=== PATIENT | male | born 1950 | race Caucasian/White ===

== ENCOUNTER 2022-07-09 11:07 | Inpatient (IN) | payer BC, MEDICARE ==
[2022-07-09 11:33] LABS: Basophils % (A) 0 %; Eosinophils # (A) 0.1 k/uL (0-0.7); Eosinophils % (A) 1 %; HCT 39.6 % (39.0-53.0); HGB 12.6 gm/dL (13.0-17.5); Hypochromasia Moderate; Lymphocytes # (A) 1.4 k/uL (1.0-4.8); Lymphocytes % (A) 9 %; MCH 30.1 pg (25.0-35.0); MCHC 31.8 g/dL (31.0-37.0); MCV 94.7 fL (80.0-100.0); Mean Platelet Volume 7.9; Monocytes # (A) 0.6 k/uL (0-1.0); Monocytes % (A) 4 %; Neutrophils % (A) 86 %; Platelet Count 229 k/uL (150-450); RBC 4.18 m/uL (4.30-5.90); RDW 15.3 % (11.5-15.5); WBC 15.2 k/uL (3.8-10.6)
[2022-07-09 11:44] LABS: ALT 60 U/L (4-49); AST 34 U/L (17-59); African American GFR (CKD) >90 (>60 ml/min/1.73 sqM); Albumin 3.5 g/dL (3.5-5.0); Alkaline Phosphatase 149 U/L (38-126); Anion Gap 8 mmol/L; Blood Urea Nitrogen 15 mg/dL (9-20); Calcium 8.9 mg/dL (8.4-10.2); Carbon Dioxide 28 mmol/L (22-30); Chloride 108 mmol/L (98-107); Glucose 106 mg/dL (74-99); Magnesium 2.1 mg/dL (1.6-2.3); Non-African American GFR(CKD) >90 (>60 ml/min/1.73 sqM); Potassium 4.5 mmol/L (3.5-5.1); Sodium 144 mmol/L (137-145); Total Bilirubin 0.7 mg/dL (0.2-1.3); Total Protein 6.6 g/dL (6.3-8.2)
--- NOTE | 2022-07-09 11:46 | ED ---
General Adult HPI - General Chief complaint: Shortness of Breath Stated complaint: AMI Time Seen by Provider: 07/09/22 11:09 Source: patient, EMS, RN notes reviewed Mode of arrival: EMS Limitations: no limitations - History of Present Illness Initial comments: This a 71-year-old male presents emergency Department from [facility] via EMS chief complaint of shortness of breath. Patient is found to be hypoxic in the 80s on 2 L of oxygen. Patient is currently on [facility] after being discharged from [facility] for pneumonia. Patient does have underlying metastatic pancreatic cancer and the question possible new metastasis to lung. Patient states that he is not having any increase in cough congestion from his recent baseline denies any nausea vomiting diarrhea constipation he has had prior chemotherapy. Patient was given 5 L O2 which improved his pulse ox to 100%. Patient states he still feels slightly short of breath denies any history of DVT or PE. - Related Data Allergies Allergy/AdvReac Type Severity Reaction Status Date / Time Penicillins Allergy Unknown Verified 07/09/22 11:19 Review of Systems ROS Statement: Those systems with pertinent positive or pertinent negative responses have been documented in the HPI. ROS Other: All systems not noted in ROS Statement are negative. 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, anemia History of Any Multi-Drug Resistant Organisms: None Reported Additional Past Surgical History / Comment(s): brain surgery Past Psychological History: Depression Smoking Status: Former smoker Past Alcohol Use History: None Reported Past Drug Use History: None Reported General Exam Limitations: no limitations General appearance: alert, in no apparent distress Head exam: Present: atraumatic, normocephalic, normal inspection Eye exam: Present: normal appearance, PERRL, EOMI. Absent: scleral icterus, conjunctival injection, periorbital swelling ENT exam: Present: normal exam, normal oropharynx, mucous membranes moist Neck exam: Present: normal inspection, full ROM. Absent: tenderness, meningismus, lymphadenopathy Respiratory exam: Present: respiratory distress (Mild), decreased breath sounds. Absent: normal lung sounds bilaterally, wheezes, rales, rhonchi, stridor Cardiovascular Exam: Present: normal rhythm, tachycardia, normal heart sounds. Absent: systolic murmur, diastolic murmur, rubs, gallop, clicks GI/Abdominal exam: Present: soft, normal bowel sounds. Absent: distended, tend erness, guarding, rebound, rigid Course Vital Signs 07/09/22 11:08 Temperature 97 F L Pulse Rate 105 H Respiratory 28 H Rate Blood Pressure 140/71 O2 Sat by Pulse 100 Oximetry EKG Findings - EKG Comments: EKG Findings:: EKG interpreted by me sinus tachycardia rate of 101 SD 142 QRS 85 QT/QTC 326/384 to prior EKG to compare to - EKG Results: EKG: interpreted by ANTOINETTE Medical Decision Making - Medical Decision Making 71-year-old presented for hypoxia. Patient does have pneumonitis, pneumonia on x-ray. Patient will be admitted for hypoxia, failure of outpatient treatment, pneumonia patient will have additional d-dimer study added pending CT if positive. - Lab Data Result diagrams: 07/09/22 11:24 07/09/22 11:24 Lab Results 07/09/22 07/09/22 07/09/22 Range/Units 11:24 11:24 11:24 WBC 15.2 H (3.8-10.6) k/uL RBC 4.18 L (4.30-5.90) m/uL Hgb 12.6 L (13.0-17.5) gm/dL Hct 39.6 (39.0-53.0) % MCV 94.7 (80.0-100.0) fL MCH 30.1 (25.0-35.0) pg MCHC 31.8 (31.0-37.0) g/dL RDW 15.3 (11.5-15.5) % Plt Count 229 (150-450) k/uL MPV 7.9 Neutrophils % 86 % Lymphocytes % 9 % Monocytes % 4 % Eosinophils % 1 % Basophils % 0 % Neutrophils # 13.0 H (1.3-7.7) k/uL Lymphocytes # 1.4 (1.0-4.8) k/uL Monocytes # 0.6 (0-1.0) k/uL Eosinophils # 0.1 (0-0.7) k/uL Basophils # 0.0 (0-0.2) k/uL Hypochromasia Moderate PT 10.1 (9.0-12.0) sec INR 0.9 (<1.2) APTT 23.0 (22.0-30.0) sec Sodium 144 (137-145) mmol/L Potassium 4.5 (3.5-5.1) mmol/L Chloride 108 H (98-107) mmol/L Carbon Dioxide 28 (22-30) mmol/L Anion Gap 8 mmol/L BUN 15 (9-20) mg/dL Creatinine 0.60 L (0.66-1.25) mg/dL Est GFR (CKD-EPI)AfAm >90 (>60 ml/min/1.73 sqM) Est GFR (CKD-EPI)NonAf >90 (>60 ml/min/1.73 sqM) Glucose 106 H (74-99) mg/dL Plasma Lactic Acid Carson (0.7-2.0) mmol/L Calcium 8.9 (8.4-10.2) mg/dL Magnesium 2.1 (1.6-2.3) mg/dL Total Bilirubin 0.7 (0.2-1.3) mg/dL AST 34 (17-59) U/L ALT 60 H (4-49) U/L Alkaline Phosphatase 149 H (38-126) U/L Troponin I (0.000-0.034) ng/mL NT-Pro-B Natriuret Pep pg/mL Total Protein 6.6 (6.3-8.2) g/dL Albumin 3.5 (3.5-5.0) g/dL 07/09/22 07/09/22 07/09/22 Range/Units 11:24 11:24 11:24 WBC (3.8-10.6) k/uL RBC (4.30-5.90) m/uL Hgb (13.0-17.5) gm/dL Hct (39.0-53.0) % MCV (80.0-100.0) fL MCH (25.0-35.0) pg MCHC (31.0-37.0) g/dL RDW (11.5-15.5) % Plt Count (150-450) k/uL MPV Neutrophils % % Lymphocytes % % Monocytes % % Eosinophils % % Basophils % % Neutrophils # (1.3-7.7) k/uL Lymphocytes # (1.0-4.8) k/uL Monocytes # (0-1.0) k/uL Eosinophils # (0-0.7) k/uL Basophils # (0-0.2) k/uL Hypochromasia PT (9.0-12.0) sec INR (<1.2) APTT (22.0-30.0) sec Sodium (137-145) mmol/L Potassium (3.5-5.1) mmol/L Chloride (98-107) mmol/L Carbon Dioxide (22-30) mmol/L Anion Gap mmol/L BUN (9-20) mg/dL Creatinine (0.66-1.25) mg/dL Est GFR (CKD-EPI)AfAm (>60 ml/min/1.73 sqM) Est GFR (CKD-EPI)NonAf (>60 ml/min/1.73 sqM) Glucose (74-99) mg/dL Plasma Lactic Acid Carson 2.2 H* (0.7-2.0) mmol/L Calcium (8.4-10.2) mg/dL Magnesium (1.6-2.3) mg/dL Total Bilirubin (0.2-1.3) mg/dL AST (17-59) U/L ALT (4-49) U/L Alkaline Phosphatase (38-126) U/L Troponin I <0.012 (0.000-0.034) ng/mL NT-Pro-B Natriuret Pep 1590 pg/mL Total Protein (6.3-8.2) g/dL Albumin (3.5-5.0) g/dL Disposition Clinical Impression: Hypoxia, Respiratory distress, Pneumonia, Failure of outpatient treatment Disposition: ADMITTED IP TO THIS HOSP Condition: Fair Referrals: None,Stated [REFERRING] - 1-2 days Time of Disposition: 12:50
[2022-07-09 11:48] LABS: INR 0.9 (<1.2); Prothrombin Time 10.1 sec (9.0-12.0)
--- NOTE | 2022-07-09 12:25 | XR ---
EXAMINATION TYPE: XR chest 2V DATE OF EXAM: 07/09/2022 COMPARISON: NONE TECHNIQUE: PA and lateral views submitted. HISTORY: Difficulty breathing FINDINGS: Uterus interstitial pattern with left lower lobe infiltrate. There is a Mediport catheter with tip ov erlying the SVC. There is no pneumothorax. Arthropathy of the shoulders. Size normal. Degenerative ch anges spine. Hyperinflation of the lungs. IMPRESSION: 1. COPD with diffuse interstitial pattern correlate for interstitial pneumonitis with superimposed le ft lower lobe infiltrate. CHF not excluded but felt less likely.
[2022-07-09] MEDS ORDERED: AZITHROMYCIN 500 MG in SODIUM CHLORIDE 0.9% 250 ML IVPB STA (13:12)
[2022-07-09] MEDS ORDERED: PNEUMONIA PROTOCOL UTILIZED 1 EACH MISC PO PRN (13:12)
[2022-07-09] MEDS ORDERED: CEFEPIME 2 GM in SODIUM CHLORIDE 0.9% 100 ML IVPB STA (13:12)
[2022-07-09] MEDS ORDERED: IPRATROPIUM-ALBUTEROL 3 ML NEB INHALATION PRN (13:12)
[2022-07-09] MEDS ORDERED: HYDROcodone/APAP 10-325MG 1 EACH TAB PO PRN (13:21)
[2022-07-09] MEDS ORDERED: SENNOSIDES-DOCUSATE SODIUM 1 EACH TAB PO PRN (13:21)
[2022-07-09] MEDS ORDERED: PROCHLORPERAZINE 10 MG TAB PO PRN (13:21)
[2022-07-09] MEDS ORDERED: DIPHENOX-ATROP 2.5-0.025 MG 1 EACH TAB PO PRN (13:21)
--- NOTE | 2022-07-09 14:29 | CT ---
EXAMINATION TYPE: CT chest angio for PE DATE OF EXAM: 07/09/2022 COMPARISON: Chest x-ray earlier today HISTORY: SOB, elevated d-dimer CT DLP: 264.1 mGycm. Automated Exposure Control for Dose Reduction was Utilized. CONTRAST: CTA scan of the thorax is performed with IV Contrast, patient injected with 63cc mL of Isovue 370, pu lmonary embolism protocol. MIP Images are created on CT scanner and reviewed. FINDINGS: LUNGS: Background mild to moderate underlying emphysematous change with peripheral bulla and bleb for mation. There is increased groundglass opacity and intralobular septal thickening in the bilateral joaquin ngs greatest in the periphery suggesting [id number] edema. Exam suboptimal as patient unable to hold breath. No pleural effusion or pneumothorax seen bilaterally. No suspicious pulmonary masses. E valuation for subcentimeter pulmonary nodules limited due to motion compromise. No suspicious focal c onsolidation. MEDIASTINUM: There is satisfactory enhancement of the pulmonary artery and its branches, there is no CT evidence for pulmonary embolism. There is left internal jugular Mediport catheter terminating in t he SVC. There are no greater than 1 cm hilar or mediastinal lymph nodes. No cardiomegaly or pericar dial effusion is seen. Coronary artery calcification is present. Hypoplastic or small sized thyroid. There appears to be a small caliber left common carotid artery which is completely occluded at its or igin. This is not well visualized in the lower neck. OTHER: Nonspecific 4.4 cm heterogeneous hypodense area worrisome for mass in the right hepatic lobe a xial image 123. Abnormal soft tissue encases the celiac artery extending from the distal pancreatic b alonso and tail, underlying4.2 cm mass suspected axial image 136. Small size hiatal hernia. IMPRESSION: 1. No CT evidence for acute pulmonary embolism. 2. Mild to moderate underlying emphysematous change with mild to moderate bilateral interstitial rhett a and/or atypical infiltrates. No focal consolidation. 3. Suspicious soft tissue suspected infiltrating mass in the distal pancreas worrisome for neoplasm. Probable solid lesion in the liver worrisome for metastatic disease. Further workup and follow-up adv ised. 4. Suspect small caliber occluded left common carotid artery. Correlate clinically. Consider imaging follow-up to confirm.
--- NOTE | 2022-07-09 16:45 | P.CNPUL ---
History of Present Illness Consult date: 07/09/22 Reason for consult: dyspnea, pneumonia History of present illness: 71-year-old male patient came into the ED because of worsening shortness of br eath. He was found to be hypoxic. There is currently at [facility] , and our understanding is that the patient was send her after he was hospitalized at [facility] in [place] and he was given systemic chemotherapy for metastatic pancreas cancer. During the same hospitalization, the patient underwent a bronchoscopy and bronchoalveolar lavage that was done was positive for pneumocystis Jev. . Diagnostic circumstances are not known. I believe this was a bronchoscopy and bronchial lavage and I'm not sure the patient was to Bactrim accordingly. assisted medication list, there is no antimicrobial treatment directed towards pneumocystis infection. The patient has no previous history of DVTs or pulmonary embolism. Nausea of any aspiration. No nausea or vomiting or abdomin al pain. CAT scan of the chest was done in the ED and it showed moderate degree of emphysematous changes bilaterally and peripheral bullae and bleb formation. There was increased ground glass opacity and interlobular septal thickening in the bilateral lungs reveal distant apparently suggesting of an underlying pneumonia/infection. No evidence of any pleural effusion. No mediastinal lymphadenopathy. There was a mass in the tail of the pancreas. This was quite worrisome for pancreatic cancer and the patient has also solid lesion in the liver suggestive of metastatic disease. For now, the patient is on 5 L O2 nasal cannula. The wound was closed of 15.2. Hemoglobin is 12.6. D-dimer is at 1.9 with a normal cognition profile. Electrolytes are normal. Influenza a and B were negative. Covid 19 testing by PCR was negative. RSV was negative. ProBNP level was 1590. Troponins are neg ative. Review of Systems Constitutional: Reports fatigue, Reports poor appetite, Reports weakness, Reports weight loss Eyes: denies as per HPI, denies blurred vision, denies bulging eye, denies decreased vision, denies diplopia, denies discharge, denies dry eye, denies irritation, denies itching, denies pain, denies photophobia, denies loss of peripheral vision, denies loss of vision, denies tunnel vision/blind spots Ears: deny: decreased hearing, ear discharge, earache, tinnitus Ears, nose, mouth and throat: Reports as per HPI Breasts: absent: as per HPI, gynecomastia Cardiovascular: Reports decreased exercise tolerance, Reports dyspnea on exertion Respiratory: Reports dyspnea, Reports home oxygen Gastrointestinal: Reports indigestion Genitourinary: Reports as per HPI Musculoskeletal: Reports as per HPI Musculoskeletal: absent: ankle pain, ankle stiffness, ankle swelling Neurological: Reports as per HPI, Reports gait dysfunction Endocrine: Reports as per HPI, Reports fatigue Hematologic/Lymphatic: Reports as per HPI Allergic/Immunologic: Reports as per HPI Past Medical History Past Medical History: Cancer, COPD, Hyperlipidemia, Pneumonia, Thyroid Disorder Additional Past Medical History / Comment(s): pancreatic cancer metastatic treated with chemotherapy, hypothyroid, hyperlipidemia, depression, anemia, COPD, pneumocystis jiverecci pneumonia (06/28/2022) History of Any Multi-Drug Resistant Organisms: None Reported Additional Past Surgical History / Comment(s): 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6, mediport insertion Past Psychological History: Depression Smoking Status: Former smoker Past Alcohol Use History: None Reported Past Drug Use History: None Reported Medications and Allergies Home Medications Medication Instructions Recorded Confirmed Type ARIPiprazole [Abilify] 15 mg PO DAILY 07/09/22 07/09/22 History Atorvastatin [Lipitor] 20 mg PO HS 07/09/22 07/09/22 History Budesonide/Formoterol Fumarate 2 puff INHALATION RT-BID 07/09/22 07/09/22 History [Symbicort 160-4.5 Mcg Inhaler] Diphenoxylate HCl/Atropine 1 tab PO Q6H PRN 07/09/22 07/09/22 History [Lomotil 2.5-0.025 mg Tablet] HYDROcodone/APAP 10-325MG [Kennan 1 tab PO Q6HR PRN 07/09/22 07/09/22 History 10-325] Ipratropium-Albuterol Nebulize 3 ml INHALATION RT-Q4H PRN 07/09/22 07/09/22 History [Duoneb 0.5 mg-3 mg/3 ml Soln] Levothyroxine Sodium [Synthroid] 25 mcg PO DAILY 07/09/22 07/09/22 History Metoprolol Tartrate [Lopressor] 12.5 mg PO BID 07/09/22 07/09/22 History Midodrine HCl [ProAmatine] 10 mg PO TID 07/09/22 07/09/22 History Omeprazole 20 mg PO DAILY 07/09/22 07/09/22 History Prochlorperazine [Compazine] 10 mg PO Q6H PRN 07/09/22 07/09/22 History Sennosides/Docusate Sodium [Senna 1 cap PO Q12H PRN 07/09/22 07/09/22 History Plus 8.6-50 mg Softgel] Sertraline [Zoloft] 100 mg PO DAILY 07/09/22 07/09/22 History Sodium Bicarbonate Tab 650 mg PO TID 07/09/22 07/09/22 History Sodium Chloride Tab 1 gm PO TID 07/09/22 07/09/22 History Sucralfate [Carafate] 1 gm PO Q6H 07/09/22 07/09/22 History Tiotropium 2.5 Mcg/Puff [Spiriva 2 puff INHALATION RT-DAILY 07/09/22 07/09/22 History Respimat 2.5 Mcg] dronabinoL [Marinol] 2.5 mg PO BID 07/09/22 07/09/22 History polyethylene glycoL 3350 [Miralax] 17 gm PO DAILY 07/09/22 07/09/22 History Allergies Allergy/AdvReac Type Severity Reaction Status Date / Time Penicillins Allergy Unknown Verified 07/09/22 13:12 Physical Exam Vitals: Vital Signs Temp Pulse Resp BP Pulse Ox 07/09/22 14:53 89 20 139/83 98 07/09/22 13:14 104 H 18 137/77 97 07/09/22 11:08 97 F L 105 H 28 H 140/71 100 Intake and Output 07/09/22 07/09/22 07/09/22 06:59 14:59 22:59 Other: Weight 51.71 kg Physical exam frail elderly male patient, not in acute distress. The patient is currently on 5 L of oxygen by nasal cannula. The patient is thin/frail Head exam was generally normal. There was no scleral icterus or corneal arcus. Mucous membranes were moist. Neck was supple and without jugular venous distension, thyromegaly, or carotid bruits. Carotids were easily palpable bilaterally. There was no adenopathy. Lungs are diminished bilaterally along with some limited clinical lung bases Cardiac exam revealed the PMI to be normally situated and sized. The rhythm was regular and no extrasystoles were noted during several minutes of auscultation. The first and second heart sounds were normal and physiologic splitting of the second heart sound was noted. There were no murmurs, rubs, clicks, or gallops. Abdominal exam revealed normal bowel sounds. The abdomen was soft, non-tender, and without masses, organomegaly, or appreciable enlargement of the abdominal aorta. Examination of the extremities revealed easily palpable radial, femoral and pedal pulses. There was no cyanosis, clubbing or edema. Examination of the skin revealed no evidence of significant rashes, suspicious appearing nevi or other concerning lesions. Neurologically, the patient is awake and alert and the patient does not have any focal neurological deficit. Cranial nerves are essentially intact. Motor weakness in all 4 extremities. Results - Laboratory Findings CBC and BMP: 07/09/22 11:24 07/09/22 11:24 PT/INR, D-dimer PT 10.1 sec (9.0-12.0) 07/09/22 11:24 INR 0.9 (<1.2) 07/09/22 11:24 D-Dimer 1.95 mg/L FEU (<0.60) H 07/09/22 11:24 Abnormal lab findings: Abnormal Labs 07/09/22 07/09/22 07/09/22 11:24 11:24 11:24 WBC 15.2 H RBC 4.18 L Hgb 12.6 L Neutrophils # 13.0 H D-Dimer Chloride 108 H Creatinine 0.60 L Glucose 106 H Plasma Lactic Acid Carson 2.2 H* ALT 60 H Alkaline Phosphatase 149 H 07/09/22 11:24 WBC RBC Hgb Neutrophils # D-Dimer 1.95 H Chloride Creatinine Glucose Plasma Lactic Acid Carson ALT Alkaline Phosphatase - Diagnostic Findings Chest x-ray: image reviewed Assessment and Plan Plan: Shortness of breath likely secondary to bilateral pneumonia. The patient underwent a bronchoscopy at [facility] in [place], the patient was found to have a pneumocystis Jivoreci infection. He was probablycompressed to systemic chemotherapy and he developed a pneumocystis pneumonia based on the records forwarded to us. Acute hypoxic respiratory failure currently on 5 L oxygen by nasal cannula COPD with bilateral emphysematous changes History of pancreatic cancer, metastatic with solid lesion in the liver , Being treated with systemic chemotherapy Hypothyroidism Hyperlipidemia Chronic depression Plan Agree on the current antibiotic coverage. Nevertheless I think it's important to cover this patient also with Bactrim pending further information before that was from [facility] where the patient was treated. The patient accordingly started on Bactrim Titrate FiO2 to maintain saturation above 90% Obtain records Oncology consultation We'll continue to follow.
[2022-07-09] MEDS: IPRATROPIUM-ALBUTEROL 3 ML NEB INHALATION SCH ×2 (17:09→20:43)
[2022-07-09] MEDS: SODIUM BICARBONATE TAB 650 MG TAB PO SCH ×2 (18:49→23:35)
[2022-07-09] MEDS: MIDODRINE 5 MG TAB PO SCH (18:49)
[2022-07-09] MEDS ORDERED: CEFEPIME 2 GM in SODIUM CHLORIDE 0.9% 100 ML IVPB SCH (20:00)
[2022-07-09] MEDS: SYMBICORT 160-4.5 MCG INHALER INHALATION SCH (20:43)
[2022-07-09] MEDS ORDERED: SULFAMETHOX-TMP 800-160MG 1 EACH TAB PO SCH (21:00)
[2022-07-09] MEDS: ATORVASTATIN 20 MG TAB PO SCH (23:35)
[2022-07-09] MEDS: SUCRALFATE 1 GM TAB PO SCH (23:35)
[2022-07-09] MEDS: METOPROLOL TARTRATE 12.5 MG TAB PO SCH (23:35)
[2022-07-09] MEDS: HEPARIN SODIUM,PORCINE/PF 5,000 UNIT/0.5 ML SYRINGE SQ SCH (23:35)
--- NOTE | 2022-07-10 00:42 | HP ---
HISTORY AND PHYSICAL CHIEF COMPLAINT: Shortness of breath. HISTORY OF PRESENT ILLNESS: This 71-year-old gentleman with a past medical history of hyperlipidemia, thyroid disease, pancreatic cancer, was recently treated in Hospital for pneumonia. Currently, the patient complains of shortness of breath. The patient came to [facility], and chest x-ray showed bilateral lesions, which is suggestive of possible metastasis versus infiltrates. The patient has also had some stridor and possible tracheal stenosis also. The patient is being closely monitored. There is no history of any fever, rigors, or chills. PAST MEDICAL HISTORY: Reviewed and include pancreatic cancer. The rest of history and rest of the chart is reviewed. HOME MEDICATIONS: Reviewed and include Zoloft. Dose and rest of the medications reviewed. ALLERGIES: Penicillin. FAMILY HISTORY: No history of heart disease or strokes in the family. SOCIAL HISTORY: Previous history of smoking. REVIEW OF SYSTEMS: A 14-point review of system is negative except as mentioned earlier. PHYSICAL EXAMINATION: VITAL SIGNS: Pulse 104, blood pressure ntd, respirations 18. HEENT: Conjunctivae normal. NECK: Status post tracheostomy. CARDIOVASCULAR: S1, S2. RESPIRATION: Bilateral scattered rhonchi and crackles. Stridor present. ABDOMEN: Soft, scaphoid. LEGS: No edema. No swelling. NERVOUS SYSTEM: No focal deficits. SKIN: No ulcer, rash, or bleeding. JOINTS: No active deforming arthropathy. LABORATORY DATA: WBC 15.2, hemoglobin 12.6. ASSESSMENT: 1. Shortness of breath for evaluation, possible interstitial pneumonia versus metastatic malignancy. 2. 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 3. Hyperlipidemia. 4. Hypothyroidism. 5. History of pancreatic cancer. 6. Depression. 7. Multiple medical issues. RECOMMENDATIONS: In this 71-year-old gentleman, who presented with multiple complex medical issues, we will monitor the patient closely. I would empirically treat the patient for possible hospital-acquired pneumonia with cefepime. Otherwise, bronchodilators, symptomatic treatment. Resume the home medications once they are confirmed. Pulmonary consultation. Infectious Disease evaluation. I would also recommend a D-dimer if it is elevated and CT angio chest also. Otherwise, CT chest without contrast is also another option. Prognosis guarded. See orders for details. Further recommendations to follow. Chest x-ray reviewed personally. MMODL / IJN: [id number] / [facility]
[2022-07-10] MEDS: DEXTROSE 5% IVPB SCH ×12 (01:18→16:10)
[2022-07-10] MEDS: SULFAMETHOX TMP IVPB SCH ×12 (01:18→16:10)
[2022-07-10] MEDS: WATER IVPB SCH ×12 (01:18→16:10)
[2022-07-10] MEDS: SUCRALFATE 1 GM TAB PO SCH ×5 (01:28→22:53)
[2022-07-10] MEDS: CEFEPIME 2 GM in SODIUM CHLORIDE 0.9% 100 ML IVPB SCH ×3 (03:15→18:10)
[2022-07-10] MEDS: LEVOTHYROXINE 25 MCG TAB PO SCH (05:47)
[2022-07-10] MEDS: MIDODRINE 5 MG TAB PO SCH ×3 (07:01→16:10)
[2022-07-10] MEDS: PANTOPRAZOLE 40 MG TABLET PO SCH (07:02)
[2022-07-10] MEDS: SODIUM BICARBONATE TAB 650 MG TAB PO SCH ×3 (08:25→22:50)
[2022-07-10] MEDS: ARIPiprazole 15 MG TAB PO SCH (08:26)
[2022-07-10] MEDS: HEPARIN SODIUM,PORCINE/PF 5,000 UNIT/0.5 ML SYRINGE SQ SCH ×2 (08:26→22:50)
[2022-07-10] MEDS: METOPROLOL TARTRATE 12.5 MG TAB PO SCH ×2 (08:26→22:51)
[2022-07-10] MEDS: polyethylene glycoL 3350 17 GM POWD.PACK PO SCH (08:26)
[2022-07-10] MEDS: SERTRALINE 100 MG TAB PO SCH (08:26)
[2022-07-10 08:39] LABS: Basophils # (A) 0.06 X 10*3/uL (0.00-0.10); Basophils % (A) 0.4 %; Eosinophils # (A) 0.08 X 10*3/uL (0.04-0.35); Eosinophils % (A) 0.6 %; HGB 10.9 g/dL (13.0-17.0); Immature Grans, Automated 0.6 %; Lymphocytes # (A) 1.04 X 10*3/uL (0.90-5.00); Lymphocytes % (A) 7.6 %; MCH 29.4 pg (27.0-32.0); MCHC 30.3 g/dL (32.0-37.0); Mean Platelet Volume 11.6 fL (9.5-12.2); Monocytes # (A) 0.67 X 10*3/uL (0.20-1.00); Monocytes % (A) 4.9 %; NRBC Per 100 WBC 0 /100 WBCS (0.0-0.0); Neutrophils # (A) 11.84 X 10*3/uL (1.80-7.70); Neutrophils % (A) 85.9 %; Platelet Count 175 X 10*3/uL (140-440); RBC 3.71 X 10*6/uL (4.40-5.60); RDW 16.7 % (11.5-14.5); WBC 13.77 X 10*3/uL (4.50-10.00)
[2022-07-10 09:04] LABS: Anion Gap 11.1 mmol/L (10.00-18.00); BUN/Creat Ratio 24.1 Ratio (12.00-20.00); Blood Urea Nitrogen 13.4 mg/dL (9.0-27.0); Carbon Dioxide 24.6 mmol/L (20.0-27.5); Potassium 3.4 mmol/L (3.5-5.5)
[2022-07-10 09:05] LABS: African American GFR (CKD) 120.1 (60.0-200.0); Albumin/Globulin Ratio 1.29 (1.60-3.17); Calcium 8.6 mg/dL (8.7-10.3); Globulin 2.4 g/dL (1.6-3.3); Non-African American GFR(CKD) 103.6 (60.0-200.0); Total Bilirubin 0.4 mg/dL (0.30-1.20); Total Protein 5.4 g/dL (6.2-8.2)
[2022-07-10] MEDS: SYMBICORT 160-4.5 MCG INHALER INHALATION SCH ×2 (09:10→20:54)
[2022-07-10] MEDS: IPRATROPIUM-ALBUTEROL 3 ML NEB INHALATION SCH ×4 (09:10→20:54)
[2022-07-10] MEDS: AZITHROMYCIN 500 MG in SODIUM CHLORIDE 0.9% 250 ML IVPB SCH (11:52)
[2022-07-10 12:36] VITALS: BMI 17.3
--- NOTE | 2022-07-10 15:44 | XR ---
EXAMINATION TYPE: XR chest 2V DATE OF EXAM: 07/10/2022 COMPARISON: 07/09/2022 INDICATION: Pneumonia TECHNIQUE: Frontal and lateral views of the chest are obtained. FINDINGS: The heart size is normal. The pulmonary vasculature is normal. Left lower lobe consolidation is present. Scattered increased lung markings are present mild and diff usely. Port is present on the left tip in the superior vena cava region.. IMPRESSION: 1. Left lower lobe infiltrate. Correlate for pneumonia. 2. Milder diffuse increased lung markings are nonspecific. Consider atypical pneumonia and atelectasi s.
--- NOTE | 2022-07-10 15:49 | P.PN ---
Subjective Progress Note Date: 07/10/22 71-year-old male patient came into the ED because of worsening shortness of breath. He was found to be hypoxic. There is currently at [facility] , and our understanding is that the patient was send her after he was hospitalized at [facility] in [place] and he was given systemic chemotherapy for metastatic pancreas cancer. During the same hospitalization, the patient underwent a bronchoscopy and bronchoalveolar lavage that was done was positive for pneumocystis Jev. . Diagnostic circumstances are not known. I believe this was a bronchoscopy and bronchial lavage and I'm not sure the patient was to Bactrim accordingly. intermediate medication list, there is no antimicrobial treatment directed towards pneumocystis infection. The patient has no previous history of DVTs or pulmonary embolism. Nausea of any aspiration. No nausea or vomiting or abdominal pain. CAT scan of the chest was done in the ED and it showed moderate degree of emphysematous changes bilaterally and peripheral bullae and bleb formation. There was increased ground glass opacity and interlobular septal th ickening in the bilateral lungs reveal distant apparently suggesting of an underlying pneumonia/infection. No evidence of any pleural effusion. No mediastinal lymphadenopathy. There was a mass in the tail of the pancreas. This was quite worrisome for pancreatic cancer and the patient has also solid lesion in the liver suggestive of metastatic disease. For now, the patient is on 5 L O2 nasal cannula. The wound was closed of 15.2. Hemoglobin is 12.6. D-dimer is at 1.9 with a normal cognition profile. Electrolytes are normal. Influenza a and B were negative. Covid 19 testing by PCR was negative. RSV was negative. ProBNP level was 1590. Troponins are negative. The patient is seen today 07/10/2022 in follow-up on the regular medical floor. He is currently resting comfortably in bed. He is awake and alert. He is maintaining O2 saturations in the 90s on 2 L/m per nasal cannula. White count 13.7. Hemoglobin 10.9. Sodium 139. Potassium 3.4. BUN 13. Creatinine 0.6. Glucose 123. He is continued on IV Bactrim, cefepime and azithromycin. Further bronchial wash cultures from [facility] are pending. Objective - Vital Signs Vital signs: Vital Signs Temp 97.8 F 07/10/22 14:00 Pulse 101 H 07/10/22 14:00 Resp 17 07/10/22 14:00 BP 98/59 07/10/22 14:00 Pulse Ox 97 07/10/22 14:00 FiO2 Intake & Output 07/09/22 07/10/22 07/10/22 18:59 06:59 18:59 Intake Total 1350 Output Total 200 Balance -200 1350 Weight 51.71 kg 51.71 kg 51.71 kg Intake: Intake, IV Titration 1350 Amount Azithromycin 500 mg In 250 Sodium Chloride 0.9% 250 ml @ 250 mls/hr IVPB ONCE [facility] Rx#:[id number] Cefepime 2 gm In Sodium 100 Chloride 0.9% 100 ml @ 25 mls/hr IVPB Q8H [facility] Rx#: [id number] Sulfamethox-Tmp 80-16Mg/ 500 ml 256 mg In Dextrose 5% in Water 500 ml @ 333.33 mls/hr IVPB Q6H [facility] Rx#: [id number] Sulfamethox-Tmp 80-16Mg/ 500 ml 256 mg In Dextrose 5% in Water 500 ml @ 333.33 mls/hr IVPB Q6H [facility] Rx#: [id number] Output: Urine 200 Other: Voiding Method Bedside Commode Urinal # Voids 2 - Exam GENERAL EXAM: Alert, frail, pleasant 71-year-old male patient, on 2 L nasal cannula, comfortable in no apparent distress. HEAD: Normocephalic. EYES: Normal reaction of pupils, equal size. NOSE: Clear with pink turbinates. THROAT: No erythema or exudates. NECK: No masses, no JVD. CHEST: No chest wall deformity. LUNGS: Equal air entry with bilateral scattered rhonchi. CVS: S1 and S2 normal with no audible murmur, regular rhythm. ABDOMEN: No hepatosplenomegaly, normal bowel sounds, no guarding or rigidity. SPINE: No scoliosis or deformity SKIN: No rashes CENTRAL NERVOUS SYSTEM: No focal deficits, tone is normal in all 4 extremities. EXTREMITIES: There is no peripheral edema. No clubbing, no cyanosis. Peripheral pulses are intact. - Labs CBC & Chem 7: 07/10/22 04:45 07/10/22 04:45 Labs: Abnormal Lab Results - Last 24 Hours (Table) 07/10/22 07/10/22 Range/Units 04:45 04:45 WBC 13.77 H (4.50-10.00) X 10*3/uL RBC 3.71 L (4.40-5.60) X 10*6/uL Hgb 10.9 L (13.0-17.0) g/dL Hct 36.0 L (39.6-50.0) % MCHC 30.3 L (32.0-37.0) g/dL RDW 16.7 H (11.5-14.5) % Immature Gran # 0.08 H (0.00-0.04) X 10*3/uL Neutrophils # 11.84 H (1.80-7.70) X 10*3/uL Potassium 3.4 L (3.5-5.5) mmol/L BUN/Creatinine Ratio 24.10 H (12.00-20.00) Ratio Glucose 123 H (70-110) mg/dL Calcium 8.6 L (8.7-10.3) mg/dL ALT 53 H (10-49) U/L Total Protein 5.4 L (6.2-8.2) g/dL Albumin 3.0 L (3.8-4.9) g/dL Albumin/Globulin Ratio 1.29 L (1.60-3.17) g/dL Assessment and Plan Assessment: Shortness of breath likely secondary to bilateral pneumonia. The patient underwent a bronchoscopy at [facility] in [place], the patient was found to have a pneumocystis Jivoreci infection. He was probably immunocompromised to systemic chemotherapy and he developed a pneumocystis pneumonia based on the records forwarded to us. Acute hypoxic respiratory failure currently on 2 L oxygen by nasal cannula COPD with bilateral emphysematous changes History of pancreatic cancer, metastatic with solid lesion in the liver , Being treated with systemic chemotherapy Hypothyroidism Hyperlipidemia Chronic depression Plan: The patient was seen and evaluated Chest x-ray, medications and labs reviewed Continue IV Bactrim, cefepime, azithromycin ID services are on the case Awaiting further information from [facility] Stable and on 2 L nasal cannula We will continue to follow I have personally seen and examined the patient, performed the documentation and the assessment and plan as written. Number of minutes spent on the visit: 10. This is a joint evaluation that was done along with COPIER TECHNICIAN. The patient was seen and evaluated personally. I reviewed and discussed the the above-mentioned plan with the patient and the COPIER TECHNICIAN. This evaluation was done in more than 20 minutes. I agree to the above-mentioned evaluation, information and planning.
[2022-07-10 18:51] LABS: Appearance,Urine Clear (Clear); Bilirubin,Urine Negative (Negative); Blood,Urine Negative (Negative); Calcium Oxalate Crystals,Urine Rare /hpf; Color,Urine Yellow; Glucose,Urine (UA) Negative (Negative); Ketones,Urine Negative (Negative); Leukocyte Esterase,Urine Negative (Negative); Mucus,Urine Rare /hpf; Nitrite,Urine Negative (Negative); PH, Urine 7.5 (5.0-8.0); Protein,Urine 2+ (Negative); RBC,Urine 2 /hpf (0-5); Specific Gravity,Urine 1.047 (1.001-1.035); Squamous Epithelial Cell,Urine <1 /hpf (0-4); WBC,Urine 2 /hpf (0-5)
--- NOTE | 2022-07-10 22:21 | PN ---
PROGRESS NOTE DATE OF SERVICE: 07/10/2022 SUBJECTIVE: This is a 71-year-old gentleman, who was admitted with bilateral lung lesions and shortness of breath, possibly had bilateral pneumonia. The patient on empiric antibiotics with possibility of metastases from the pancreatic malignancy also being considered. Dr. Davison and Infectious Disease following the patient closely. Now the patient is feeling better. OBJECTIVE: VITAL SIGNS: Pulse is 109, blood pressure 102/60, respirations 18. CHEST: A few scattered rhonchi and crackles. ABDOMEN: Soft. NERVOUS SYSTEM: No focal deficits. LABORATORY DATA: Reviewed. ASSESSMENT: 1. Shortness of breath for evaluation, possible bilateral interstitial pneumonia versus metastatic malignancy. 2. 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 3. Hyperlipidemia. 4. Hypothyroidism. 5. History of pancreatic cancer. 6. Depression. 7. Multiple medical issues. RECOMMENDATIONS AND DISCUSSION: Recommend to continue current management and symptomatic treatment. Otherwise, at this time, empiric antibiotics. Closely follow with Pulmonary. Guarded prognosis. Further recommendations to follow. MMODL / IJN: [id number] /
[2022-07-10] MEDS: ATORVASTATIN 20 MG TAB PO SCH (22:50)
--- NOTE | 2022-07-10 23:02 | P.CONS ---
History of Present Illness - Reason for Consult Consult date: 07/09/22 HAP Requesting physician: Bhavik Tinoco - Chief Complaint Increasing shortness of breath x few days - History of Present Illness Patient is a 71-year-old male with a recent diagnosis of metastatic pancreatic cancer patient apparently was recently admitted at [facility] and the patient has been diagnosed with pneumocystis pneumonia treated with the Bactrim patient is presenting to the [facility] ER this morning for evaluation of increasing shortness of breath patient was noticed to be hypoxic with O2 sats low 80s on 2 L nasal cannula patient denies any worsening cough or sputum production patient denies having any nausea or vomiting some epigastric abdominal pain but no worsening and no diarrhea with the symptoms the patient was evaluated by the ER physician on arrival to the ER was afebrile and no fever has been recorded subsequently patient is currently on 2 L nasal cannula satting around 97% patient hemoglobin 15.2 with a left shift did have mild elevated D-dimer kidney function has been normal lactic acid was elevated urine has been negative influenza RSV and COVID testing was negative, blood cultures obtained currently pending patient did have a CT angiogram of the chest which did shows a moderate emphysematous changes with perihilar bulla mild to moderate bilateral gestational edema or atypical infiltrate no focal consolidation soft tissue infiltrative mass distal pancreas worrisome for neoplasm patient was admitted to the hospital started on Bactrim DS infectious disease was consulted for further management of antibiotic therapy most information has been obtained from review the chart as the patient is an el evated good historian Review of Systems Positive point has been mentioned in the HPI rest of the systems are negative 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, anemia History of Any Multi-Drug Resistant Organisms: None Reported Additional Past Surgical History / Comment(s): brain surgery Past Psychological History: Depression Smoking Status: Former smoker Past Alcohol Use History: None Reported Past Drug Use History: None Reported Medications and Allergies Home Medications Medication Instructions Recorded Confirmed Type ARIPiprazole [Abilify] 15 mg PO DAILY 07/09/22 07/09/22 History Atorvastatin [Lipitor] 20 mg PO HS 07/09/22 07/09/22 History Budesonide/Formoterol Fumarate 2 puff INHALATION RT-BID 07/09/22 07/09/22 History [Symbicort 160-4.5 Mcg Inhaler] Ipratropium-Albuterol Nebulize 3 ml INHALATION RT-Q4H PRN 07/09/22 07/09/22 History [Duoneb 0.5 mg-3 mg/3 ml Soln] Levothyroxine Sodium [Synthroid] 25 mcg PO DAILY 07/09/22 07/09/22 History Metoprolol Tartrate [Lopressor] 12.5 mg PO BID 07/09/22 07/09/22 History Midodrine HCl [ProAmatine] 10 mg PO TID 07/09/22 07/09/22 History Omeprazole 20 mg PO DAILY 07/09/22 07/09/22 History Prochlorperazine [Compazine] 10 mg PO Q6H PRN 07/09/22 07/09/22 History Sennosides/Docusate Sodium [Senna 1 cap PO Q12H PRN 07/09/22 07/09/22 History Plus 8.6-50 mg Softgel] Sertraline [Zoloft] 100 mg PO DAILY 07/09/22 07/09/22 History Sodium Bicarbonate Tab 650 mg PO TID 07/09/22 07/09/22 History Sodium Chloride Tab 1 gm PO TID 07/09/22 07/09/22 History Sucralfate [Carafate] 1 gm PO Q6H 07/09/22 07/09/22 History Tiotropium 2.5 Mcg/Puff [Spiriva 2 puff INHALATION RT-DAILY 07/09/22 07/09/22 History Respimat 2.5 Mcg] Sulfamethox-Tmp 800-160Mg [Bactrim 2 tab PO Q8HR #84 tab 07/16/22 Rx DS 800-160 mg] polyethylene glycoL 3350 [Miralax] 17 gm PO DAILY #0 07/16/22 07/09/22 Rx Diphenoxylate HCl/Atropine 1 tab PO Q6H PRN #4 tab 07/17/22 Rx [Lomotil 2.5-0.025 mg Tablet] dronabinoL [Marinol] 2.5 mg PO BID #4 cap 07/17/22 Rx Allergies Allergy/AdvReac Type Severity Reaction Status Date / Time Penicillins Allergy Unknown Verified 07/09/22 13:12 Physical Exam Vitals: Vital Signs Temp Pulse Resp BP Pulse Ox 07/09/22 14:53 89 20 139/83 98 07/09/22 13:14 104 H 18 137/77 97 07/09/22 11:08 97 F L 105 H 28 H 140/71 100 Intake and Output 07/08/22 07/09/22 07/09/22 22:59 06:59 14:59 Other: Weight 51.71 kg GENERAL DESCRIPTION: Elderly male lying in bed, no distress. No tachypnea or accessory muscle of respiration use. HEENT: Shows Pallor , no scleral icterus. Oral mucous membrane is dry. No pharyngeal erythema or thrush NECK: Trachea central, no thyromegaly. LUNGS: Unlabored breathing. Course breath sounds bilaterally. HEART: S1, S2, regular rate and rhythm. No loud murmur ABDOMEN: Soft, no tenderness , guarding or rigidity, no organomegaly EXTREMITIES: No edema of feet. SKIN: No rash, no masses palpable. NEUROLOGICAL: The patient is awake, alert, oriented x3, mood and affect normal. Results CBC & Chem 7: 07/16/22 05:34 07/16/22 05:34 Labs: Abnormal Lab Results - Last 24 Hours (Table) 07/09/22 07/09/22 07/09/22 Range/Units 11:24 11:24 11:24 WBC 15.2 H (3.8-10.6) k/uL RBC 4.18 L (4.30-5.90) m/uL Hgb 12.6 L (13.0-17.5) gm/dL Neutrophils # 13.0 H (1.3-7.7) k/uL D-Dimer (<0.60) mg/L FEU Chloride 108 H (98-107) mmol/L Creatinine 0.60 L (0.66-1.25) mg/dL Glucose 106 H (74-99) mg/dL Plasma Lactic Acid Carson 2.2 H* (0.7-2.0) mmol/L ALT 60 H (4-49) U/L Alkaline Phosphatase 149 H (38-126) U/L 07/09/22 Range/Units 11:24 WBC (3.8-10.6) k/uL RBC (4.30-5.90) m/uL Hgb (13.0-17.5) gm/dL Neutrophils # (1.3-7.7) k/uL D-Dimer 1.95 H (<0.60) mg/L FEU Chloride (98-107) mmol/L Creatinine (0.66-1.25) mg/dL Glucose (74-99) mg/dL Plasma Lactic Acid Carson (0.7-2.0) mmol/L ALT (4-49) U/L Alkaline Phosphatase (38-126) U/L Assessment and Plan (1) Failure of outpatient treatment Status: Acute Code(s): Z78.9 - OTHER SPECIFIED HEALTH STATUS SNOMED Code(s): 983358822 (2) Pneumonia Status: Acute Code(s): J18.9 - PNEUMONIA, UNSPECIFIED ORGANISM SNOMED Code(s): 715296429 Plan: 1patient presented to hospital with increasing shortness of breath which is likely multifactorial in this patient who do have evidence of interstitial infiltrate but no focal consolidation question of possible atypical pneumonia with a recent diagnosis of pneumocystis at [facility] could be likely etiology versus gram-negative pneumonia. 2 Obtain sputum for gram stain and culture 3check inflammatory markers. 4continue with the Bactrim DS We will follow on clinical condition and cultures to further adjust medication if needed Thank you for this consultation will follow this patient along with you Time with Patient: Greater than 30
--- NOTE | 2022-07-10 23:07 | P.PN ---
Subjective Progress Note Date: 07/10/22 Principal diagnosis: pneumonia Patient is a 71-year-old male with a past medical history significant for metastatic pancreatic cancer on chemotherapy and recent diagnosis of pneumocystis pneumonia in the outside hospital presenting assisted with increasing shortness of breath patient did have hypoxic but afebrile elevated white count and CT angiogram shows interstitial infiltrate. On today's evaluation that is 07/10/2022 the patient remains to be afebrile patient is currently breathing comfortably on 2 L nasal cannula the patient denies having any chest pain no worsening cough or sputum production abdominal pain no diarrhea Objective - Vital Signs Vital signs: Vital Signs Temp 97.8 F 07/10/22 14:00 Pulse 101 H 07/10/22 14:00 Resp 17 07/10/22 14:00 BP 98/59 07/10/22 14:00 Pulse Ox 97 07/10/22 14:00 FiO2 Intake & Output 07/09/22 07/10/22 07/10/22 18:59 06:59 18:59 Intake Total 1350 Output Total 200 Balance -200 1350 Weight 51.71 kg 51.71 kg 51.71 kg Intake: Intake, IV Titration 1350 Amount Azithromycin 500 mg In 250 Sodium Chloride 0.9% 250 ml @ 250 mls/hr IVPB ONCE [facility] Rx#:[id number] Cefepime 2 gm In Sodium 100 Chloride 0.9% 100 ml @ 25 mls/hr IVPB Q8H [facility] Rx#: [id number] Sulfamethox-Tmp 80-16Mg/ 500 ml 256 mg In Dextrose 5% in Water 500 ml @ 333.33 mls/hr IVPB Q6H [facility] Rx#: [id number] Sulfamethox-Tmp 80-16Mg/ 500 ml 256 mg In Dextrose 5% in Water 500 ml @ 333.33 mls/hr IVPB Q6H [facility] Rx#: [id number] Output: Urine 200 Other: Voiding Method Bedside Commode Urinal # Voids 2 - Exam GENERAL DESCRIPTION: Elderly male lying in bed, no distress. No tachypnea or accessory muscle of respiration use. LUNGS: Unlabored breathing. Decreased breath sound at the base HEART: S1, S2, regular rate and rhythm. No loud murmur ABDOMEN: Soft, no tenderness EXTREMITIES: No edema of feet. - Labs CBC & Chem 7: 07/10/22 04:45 07/10/22 04:45 Labs: Abnormal Lab Results - Last 24 Hours (Table) 07/10/22 07/10/22 Range/Units 04:45 04:45 WBC 13.77 H (4.50-10.00) X 10*3/uL RBC 3.71 L (4.40-5.60) X 10*6/uL Hgb 10.9 L (13.0-17.0) g/dL Hct 36.0 L (39.6-50.0) % MCHC 30.3 L (32.0-37.0) g/dL RDW 16.7 H (11.5-14.5) % Immature Gran # 0.08 H (0.00-0.04) X 10*3/uL Neutrophils # 11.84 H (1.80-7.70) X 10*3/uL Potassium 3.4 L (3.5-5.5) mmol/L BUN/Creatinine Ratio 24.10 H (12.00-20.00) Ratio Glucose 123 H (70-110) mg/dL Calcium 8.6 L (8.7-10.3) mg/dL ALT 53 H (10-49) U/L Total Protein 5.4 L (6.2-8.2) g/dL Albumin 3.0 L (3.8-4.9) g/dL Albumin/Globulin Ratio 1.29 L (1.60-3.17) g/dL Assessment and Plan (1) Pneumonia Current Visit: Yes Status: Acute Code(s): J18.9 - PNEUMONIA, UNSPECIFIED ORGANISM SNOMED Code(s): 579589767 Plan: 1patient presented to hospital with increasing shortness of breath which is likely multifactorial in this patient who do have evidence of interstitial in filtrate but no focal consolidation question of possible atypical pneumonia with a recent diagnosis of pneumocystis at [facility] could be likely etiology versus gram-negative pneumonia. 2 Obtain sputum for gram stain and culture 3Currently waiting for records from [facility] Andrea. 4patient seem to have shown some clinical improvement and will continue with the Bactrim DS along with the cefepime and watch his kidney function closely Time with Patient: Less than 30
[2022-07-11] MEDS: DEXTROSE 5% IVPB SCH ×10 (00:26→23:53)
[2022-07-11] MEDS: WATER IVPB SCH ×10 (00:26→23:53)
[2022-07-11] MEDS: SULFAMETHOX TMP IVPB SCH ×10 (00:26→23:53)
[2022-07-11] MEDS: CEFEPIME 2 GM in SODIUM CHLORIDE 0.9% 100 ML IVPB SCH ×3 (02:39→18:43)
[2022-07-11] MEDS: LEVOTHYROXINE 25 MCG TAB PO SCH (06:27)
[2022-07-11] MEDS: MIDODRINE 5 MG TAB PO SCH ×3 (06:27→15:35)
[2022-07-11] MEDS: PANTOPRAZOLE 40 MG TABLET PO SCH (06:27)
[2022-07-11] MEDS: SUCRALFATE 1 GM TAB PO SCH ×4 (06:27→23:32)
[2022-07-11] MEDS: HEPARIN SODIUM,PORCINE/PF 5,000 UNIT/0.5 ML SYRINGE SQ SCH ×2 (08:22→20:48)
[2022-07-11] MEDS: SODIUM BICARBONATE TAB 650 MG TAB PO SCH ×3 (08:22→20:48)
[2022-07-11] MEDS: ARIPiprazole 15 MG TAB PO SCH (08:22)
[2022-07-11] MEDS: SERTRALINE 100 MG TAB PO SCH (08:22)
[2022-07-11] MEDS: METOPROLOL TARTRATE 12.5 MG TAB PO SCH ×2 (08:22→20:48)
[2022-07-11] MEDS: polyethylene glycoL 3350 17 GM POWD.PACK PO SCH (08:22)
[2022-07-11] MEDS: IPRATROPIUM-ALBUTEROL 3 ML NEB INHALATION SCH ×4 (09:02→20:32)
[2022-07-11] MEDS: SYMBICORT 160-4.5 MCG INHALER INHALATION SCH ×2 (09:03→20:32)
[2022-07-11] MEDS: AZITHROMYCIN 500 MG in SODIUM CHLORIDE 0.9% 250 ML IVPB SCH (11:24)
[2022-07-11 13:22] LABS: HIV 2 AB Non-Reactive (Non-Reactive); HIV AB P24 Non-Reactive (Non-Reactive); HIV P24 AG Non-Reactive (Non-Reactive)
--- NOTE | 2022-07-11 14:44 | P.PN ---
Subjective Progress Note Date: 07/11/22 71-year-old male patient came into the ED because of worsening shortness of breath. He was found to be hypoxic. There is currently at [facility] , and our understanding is that the patient was send her after he was hospitalized at [facility] in [place] and he was given systemic chemotherapy for metastatic pancreas cancer. During the same hospitalization, the patient underwent a bronchoscopy and bronchoalveolar lavage that was done was positive for pneumocystis Jev. . Diagnostic circumstances are not known. I believe this was a bronchoscopy and bronchial lavage and I'm not sure the patient was to Bactrim accordingly. USP medication list, there is no antimicrobial treatment directed towards pneumocystis infection. The patient has no previous history of DVTs or pulmonary embolism. Nausea of any aspiration. No nausea or vomiting or abdominal pain. CAT scan of the chest was done in the ED and it showed moderate degree of emphysematous changes bilaterally and peripheral bullae and bleb formation. There was increased ground glass opacity and interlobular septal th ickening in the bilateral lungs reveal distant apparently suggesting of an underlying pneumonia/infection. No evidence of any pleural effusion. No mediastinal lymphadenopathy. There was a mass in the tail of the pancreas. This was quite worrisome for pancreatic cancer and the patient has also solid lesion in the liver suggestive of metastatic disease. For now, the patient is on 5 L O2 nasal cannula. The wound was closed of 15.2. Hemoglobin is 12.6. D-dimer is at 1.9 with a normal cognition profile. Electrolytes are normal. Influenza a and B were negative. Covid 19 testing by PCR was negative. RSV was negative. ProBNP level was 1590. Troponins are negative. The patient is seen today 07/10/2022 in follow-up on the regular medical floor. He is currently resting comfortably in bed. He is awake and alert. He is maintaining O2 saturations in the 90s on 2 L/m per nasal cannula. White count 13.7. Hemoglobin 10.9. Sodium 139. Potassium 3.4. BUN 13. Creatinine 0.6. Glucose 123. He is continued on IV Bactrim, cefepime and azithromycin. Further bronchial wash cultures from [facility] are pending. 07/11/2022, seeing the patient for a follow-up clinically the same. No significant Changes. No significant shortness of breath. Remains on the same antibiotic coverage.HIV screen was negative. No nausea. No vomiting. No abdominal pain. No fever or chills. Infectious disease is still looking into this possibility of pneumocystis infection and this is based on the bronchial lavage that was done on 06/28/2022. Objective - Vital Signs Vital signs: Vital Signs Temp 97.8 F 07/11/22 14:00 Pulse 95 07/11/22 14:00 Resp 18 07/11/22 14:00 BP 95/58 07/11/22 14:00 Pulse Ox 97 07/11/22 14:00 FiO2 Intake & Output 07/10/22 07/11/22 07/11/22 18:59 06:59 18:59 Intake Total 1350 850 Balance 1350 850 Weight 51.71 kg Intake: Intake, IV Titration 1350 850 Amount Azithromycin 500 mg In 250 Sodium Chloride 0.9% 250 ml @ 250 mls/hr IVPB DAILY@1200 [facility] Rx#: [id number] Azithromycin 500 mg In 250 Sodium Chloride 0.9% 250 ml @ 250 mls/hr IVPB ONCE [facility] Rx#:[id number] Cefepime 2 gm In Sodium 100 100 Chloride 0.9% 100 ml @ 25 mls/hr IVPB Q8H [facility] Rx#: [id number] Sulfamethox-Tmp 80-16Mg/ 500 ml 256 mg In Dextrose 5% in Water 500 ml @ 333.33 mls/hr IVPB Q6H [facility] Rx#: [id number] Sulfamethox-Tmp 80-16Mg/ 500 500 ml 256 mg In Dextrose 5% in Water 500 ml @ 333.33 mls/hr IVPB Q6H [facility] Rx#: [id number] Other: Voiding Method Bedside Commode Urinal # Voids 3 - Exam GENERAL EXAM: Alert, frail, pleasant 71-year-old male patient, on 2 L nasal cannula, comfortable in no apparent distress. HEAD: Normocephalic. EYES: Normal reaction of pupils, equal size. NOSE: Clear with pink turbinates. THROAT: No erythema or exudates. NECK: No masses, no JVD. CHEST: No chest wall deformity. LUNGS: Equal air entry with bilateral scattered rhonchi. CVS: S1 and S2 normal with no audible murmur, regular rhythm. ABDOMEN: No hepatosplenomegaly, normal bowel sounds, no guarding or rigidity. SPINE: No scoliosis or deformity SKIN: No rashes CENTRAL NERVOUS SYSTEM: No focal deficits, tone is normal in all 4 extremities. EXTREMITIES: There is no peripheral edema. No clubbing, no cyanosis. Peripheral pulses are intact. - Labs CBC & Chem 7: 07/10/22 04:45 07/10/22 04:45 Labs: Abnormal Lab Results - Last 24 Hours (Table) 07/10/22 07/11/22 Range/Units 18:24 05:56 Procalcitonin 0.30 H (0.02-0.09) ng/mL Ur Specific [place] 1.047 H (1.001-1.035) Urine Protein 2+ H (Negative) Calcium Oxalate Crystal Rare H (None) /hpf Urine Mucus Rare H (None) /hpf Microbiology - Last 24 Hours (Table) 07/09/22 13:30 Blood Culture - Preliminary Blood No Growth after 24 hours Assessment and Plan Assessment: Shortness of breath likely secondary to bilateral pneumonia. The patient underwent a bronchoscopy at [facility] facility in [place], the patient was found to have a pneumocystis Jivoreci infection. He was probably immunocompromised to systemic chemotherapy and he developed a pneumocystis pneumonia based on the records forwarded to us. Acute hypoxic respiratory failure currently on 2 L oxygen by nasal cannula COPD with bilateral emphysematous changes History of pancreatic cancer, metastatic with solid lesion in the liver , Being treated with systemic chemotherapy Hypothyroidism Hyperlipidemia Chronic depression Plan: Continue same treatment Awaiting records from [facility] Continue IV Bactrim, cefepime, azithromycin Stable and on 2 L nasal cannula We will continue to follow
--- NOTE | 2022-07-11 16:30 | P.PN ---
Subjective Progress Note Date: 07/11/22 Principal diagnosis: pneumonia Patient is a 71-year-old male with a past medical history significant for metastatic pancreatic cancer on chemotherapy and recent diagnosis of pneumocystis pneumonia in the outside hospital presenting retirement with increasing shortness of breath patient did have hypoxic but afebrile elevated white count and CT angiogram shows interstitial infiltrate. Patient recently did have a bronchoscopy done at [facility] and was positive for pneumocystis On today's evaluation that is 07/11/2022 the patient continues to be afebrile patient is currently breathing comfortably on 2 L nasal cannula, the patient denies chest pain, the patient cough is decreased intensity no nausea no vomiting no abdominal pain or diarrhea Objective - Vital Signs Vital signs: Vital Signs Temp 97.7 F 07/11/22 06:40 Pulse 92 07/11/22 12:18 Resp 16 07/11/22 06:40 BP 105/63 07/11/22 06:40 Pulse Ox 96 07/11/22 09:03 FiO2 Intake & Output 07/10/22 07/11/22 07/11/22 18:59 06:59 18:59 Intake Total 1350 850 Balance 1350 850 Weight 51.71 kg Intake: Intake, IV Titration 1350 850 Amount Azithromycin 500 mg In 250 Sodium Chloride 0.9% 250 ml @ 250 mls/hr IVPB DAILY@1200 [facility] Rx#: [id number] Azithromycin 500 mg In 250 Sodium Chloride 0.9% 250 ml @ 250 mls/hr IVPB ONCE [facility] Rx#:[id number] Cefepime 2 gm In Sodium 100 100 Chloride 0.9% 100 ml @ 25 mls/hr IVPB Q8H [facility] Rx#: [id number] Sulfamethox-Tmp 80-16Mg/ 500 ml 256 mg In Dextrose 5% in Water 500 ml @ 333.33 mls/hr IVPB Q6H [facility] Rx#: [id number] Sulfamethox-Tmp 80-16Mg/ 500 500 ml 256 mg In Dextrose 5% in Water 500 ml @ 333.33 mls/hr IVPB Q6H [facility] Rx#: [id number] Other: Voiding Method Bedside Commode Urinal # Voids 3 - Exam GENERAL DESCRIPTION: Elderly male lying in bed, no distress. No tachypnea or accessory muscle of respiration use. LUNGS: Unlabored breathing. Decreased breath sound at the base HEART: S1, S2, regular rate and rhythm. No loud murmur ABDOMEN: Soft, no tenderness EXTREMITIES: No edema of feet. - Labs CBC & Chem 7: 07/10/22 04:45 07/10/22 04:45 Labs: Abnormal Lab Results - Last 24 Hours (Table) 07/10/22 07/11/22 Range/Units 18:24 05:56 Procalcitonin 0.30 H (0.02-0.09) ng/mL Ur Specific [place] 1.047 H (1.001-1.035) Urine Protein 2+ H (Negative) Calcium Oxalate Crystal Rare H (None) /hpf Urine Mucus Rare H (None) /hpf Microbiology - Last 24 Hours (Table) 07/09/22 13:30 Blood Culture - Preliminary Blood No Growth after 24 hours Assessment and Plan (1) Pneumonia Current Visit: Yes Status: Acute Code(s): J18.9 - PNEUMONIA, UNSPECIFIED ORGANISM SNOMED Code(s): 195083967 Plan: 1patient presented to hospital with increasing shortness of breath which is likely multifactorial in this patient who do have evidence of interstitial infiltrate but no focal consolidation question of possible atypical pneumonia with a recent diagnosis of pneumocystis at [facility] could be likely etiology versus gram-negative pneumonia. 2 Obtain sputum for gram stain and culture 3 records from [facility] were reviewed with her air quality manager and BAL is positive for pneumocystis. 4patient seem to have shown some clinical improvement and will continue with the Bactrim DS along with the cefepime and monitor his clinical course closely Time with Patient: Less than 30
--- NOTE | 2022-07-11 16:49 | CDI ---
Documentation Clarification Form Date: 07/11/2022 04:27:23 PM From: Joan Xiao RN CCDS Admit Date: 07/09/2022 01:57:00 PM Patient Name: Alvarado Mckee Visit Number: [id number] Discharge Date: ATTENTION: The Clinical Documentation Specialists (CDI) and [facility] Coding Staff appreciate your assistance in clarifying documentation. Please respond to the clarification below the line at the bottom and electronically sign. The CDI & [facility] Coding staff will review the response and follow-up if needed. Please note: Queries are made part of the Legal Health Record. If you have any questions, please contact the author of this message via ITS. Dr. Bhavik Tinoco The Registered Dietitian assessment on 07/10 indicates this patient is underweight. Based on this information and the findings below, is there an additional diagnosis that is clinically appropriate for this patient? History/Risk Factors: 71-year-old male presents to the ED with shortness of breath. Medical History: HLD, Thyroid disease, Pancreatic cancer on systemic chemotherapy and recent admission for Pneumonia. 07/09, H&P. Clinical Indicators: RD Consult Assessment: Current BMI: 17.3 Weight stated by patient 51.71kg: Height 5ft 8in Calculated ideal body weight 70kg. Regular diet, appetite fair, chemotherapy affected appetite SUPPLY TECH. Nutritional Assessment: Nutrition intake Poor: Percent consumed 0-25%; 25% of breakfast tray, Heart Healthy diet. Concerns: Difficulty chewing: Poor dentition, requesting pureed foods. Appetite fair. Needs in Kcals: 30-35Kcals/Kg Estimated. Energy Needs Kcal 9036-2141. Estimated protein range 1.2-1.5 grams/kg. Estimated protein needs 62-78 grams/day. Nutritional diagnosis: Inadequate oral intake Treatment: Marinol Dietary Consult: See above Supplements: Ensure Enlive TID vanilla, Magic cups BID (lunch and dinner) Lab monitoring: Chemistry Is there an additional diagnosis that is clinically appropriate for this patient? [ ] Moderate Protein-Calorie Malnutrition [ ] Severe Protein-Calorie Malnutrition [ ] Other condition, please specify [ ] Unable to Determine (Template Last Revised: September 2020) Moderate Protein-Calorie Malnutrition MTDD
[2022-07-11] MEDS: ATORVASTATIN 20 MG TAB PO SCH (20:48)
[2022-07-12] MEDS: CEFEPIME 2 GM in SODIUM CHLORIDE 0.9% 100 ML IVPB SCH ×3 (03:34→22:58)
[2022-07-12] MEDS: PANTOPRAZOLE 40 MG TABLET PO SCH (06:21)
[2022-07-12] MEDS: LEVOTHYROXINE 25 MCG TAB PO SCH (06:21)
[2022-07-12] MEDS: SUCRALFATE 1 GM TAB PO SCH ×4 (06:21→22:57)
[2022-07-12] MEDS: MIDODRINE 5 MG TAB PO SCH ×3 (06:21→17:24)
--- NOTE | 2022-07-12 07:02 | PN ---
PROGRESS NOTE DATE OF SERVICE: 07/11/2022 SUBJECTIVE: This is a 71-year-old gentleman who was admitted with shortness of breath and possible acute interstitial pneumonia, also had PCP pneumonia. The chest x-ray was reviewed and the patient is being closely monitored by Infectious Disease as well as Pulmonary also. PAST MEDICAL HISTORY: Reviewed. OBJECTIVE: VITAL SIGNS: Pulse is 89, blood pressure 103/65, respirations 16. CHEST: A few scattered rhonchi. ABDOMEN: Soft. NERVOUS SYSTEM: Nonfocal. LABORATORY DATA: Reviewed. ASSESSMENT: 1. Shortness of breath, possibly acute bilateral interstitial pneumonia, possibly PCP pneumonia versus gram-negative pneumonia. 2. 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 3. Hypertension. 4. Hyperlipidemia. 5. History of pancreatic cancer. 6. Depression. 7. Multiple medical issues. RECOMMENDATIONS: Recommended to continue current management. Continue the antibiotics, continue with Bactrim. Closely follow with Pulmonary and Infectious Disease. Further recommendations to follow. MMODL / IJN: [id number] /
[2022-07-12] MEDS: SYMBICORT 160-4.5 MCG INHALER INHALATION SCH ×2 (09:15→19:22)
[2022-07-12] MEDS: IPRATROPIUM-ALBUTEROL 3 ML NEB INHALATION SCH ×4 (09:15→19:22)
--- NOTE | 2022-07-12 09:36 | CDI ---
Documentation Clarification Form Date: 07/12/2022 09:34:36 AM From: Joan Xiao RN CCDS Admit Date: 07/09/2022 01:57:00 PM Patient Name: Alvarado Mckee Visit Number: [id number] Discharge Date: ATTENTION: The Clinical Documentation Specialists (CDI) and [facility] Coding Staff appreciate your assistance in clarifying documentation. Please respond to the clarification below the line at the bottom and electronically sign. The CDI & [facility] Coding staff will review the response and follow-up if needed. Please note: Queries are made part of the Legal Health Record. If you have any questions, please contact the author of this message via ITS. Dr. Bhavik Tinoco A Stage 2 Coccyx pressure injury Hospital acquired is documented by Nursing, 07/11, In Nursing Pressure Injury assessment. Based on this information and the findings below, is there an additional diagnosis that is clinically appropriate for this patient? History/Risk Factors: History/Risk Factors: 71-year-old male presents to the ED with shortness of breath. Medical History: HLD, Thyroid disease, Pancreatic cancer on systemic chemotherapy and recent admission for Pneumonia. 07/09, H&P. Clinical Indicators: Location: [facility] acquired Stage II Treatment: Oral nutritional supplement, Turn Q2 Hour; Absorbent pad Is there an additional diagnosis that is clinically appropriate for this patient? [ ] Coccyx Pressure Ulcer Stage 2 Not POA [ ] Coccyx Pressure Ulcer Stage 2 POA [ ] Other condition, please specify [ ] Unable to determine Clinical Definitions: Stage 1 Pressure Ulcer: intact skin, non-blanching redness of local area Stage 2 Pressure Ulcer: Partial thickness, loss of dermis, pink wound bed Stage 3 Pressure Ulcer: Full thickness tissue loss Stage 4 Pressure Ulcer: Full thickness tissue loss with exposed bone, tendon, or muscle. Unstageable pressure ulcer: Full thickness tissue loss in which the base of the ulcer is covered by slough (yellow, hernandez, myles, green or brown) and/or eschar (hernandez, brown or black) in the wound bed. (Template Last Revised: September 2020) Coccyx Pressure Ulcer Stage 2 POA MTDD
[2022-07-12] MEDS: WATER IVPB SCH ×6 (09:43→22:59)
[2022-07-12] MEDS: SULFAMETHOX TMP IVPB SCH ×6 (09:43→22:59)
[2022-07-12] MEDS: DEXTROSE 5% IVPB SCH ×6 (09:43→22:59)
[2022-07-12] MEDS: HEPARIN SODIUM,PORCINE/PF 5,000 UNIT/0.5 ML SYRINGE SQ SCH ×2 (09:43→22:58)
[2022-07-12] MEDS: polyethylene glycoL 3350 17 GM POWD.PACK PO SCH ×2 (09:43→09:50)
[2022-07-12] MEDS: SODIUM BICARBONATE TAB 650 MG TAB PO SCH ×3 (09:43→22:57)
[2022-07-12] MEDS: SERTRALINE 100 MG TAB PO SCH (09:43)
[2022-07-12] MEDS: METOPROLOL TARTRATE 12.5 MG TAB PO SCH ×2 (09:43→23:15)
[2022-07-12] MEDS: ARIPiprazole 15 MG TAB PO SCH (09:43)
--- NOTE | 2022-07-12 12:05 | P.PN ---
Subjective Progress Note Date: 07/12/22 Principal diagnosis: pneumonia Patient is a 71-year-old male with a past medical history significant for metastatic pancreatic cancer on chemotherapy and recent diagnosis of pneumocystis pneumonia in the outside hospital presenting assisted with increasing shortness of breath patient did have hypoxic but afebrile elevated white count and CT angiogram shows interstitial infiltrate. Patient recently did have a bronchoscopy done at [facility] and was positive for pneumocystis On today's evaluation that is 07/12/2022 the patient continues to be afebrile patient is currently breathing comfortably on 2 L nasal cannula, the patient denies chest pain, the patient did have occasional dry cough, the patient denies nausea no vomiting no abdominal pain no diarrhea Objective - Vital Signs Vital signs: Vital Signs Temp 97.6 F 07/12/22 07:56 Pulse 104 H 07/12/22 09:27 Resp 17 07/12/22 07:56 BP 108/61 07/12/22 07:56 Pulse Ox 94 L 07/12/22 09:15 FiO2 Intake & Output 07/11/22 07/12/22 07/12/22 18:59 06:59 18:59 Intake Total 850 50 Output Total 1575 Balance 850 -1525 Weight 51.71 kg Intake: Intake, IV Titration 850 Amount Azithromycin 500 mg In 250 Sodium Chloride 0.9% 250 ml @ 250 mls/hr IVPB DAILY@1200 [facility] Rx#: [id number] Cefepime 2 gm In Sodium 100 Chloride 0.9% 100 ml @ 25 mls/hr IVPB Q8H [facility] Rx#: [id number] Sulfamethox-Tmp 80-16Mg/ 500 ml 256 mg In Dextrose 5% in Water 500 ml @ 333.33 mls/hr IVPB Q6H [facility] Rx#: [id number] Oral 50 Output: Urine 1575 Other: Voiding Method Urinal # Voids 3 - Exam GENERAL DESCRIPTION: Elderly male lying in bed, no distress. No tachypnea or accessory muscle of respiration use. LUNGS: Unlabored breathing. Decreased breath sound at the base HEART: S1, S2, regular rate and rhythm. No loud murmur ABDOMEN: Soft, no tenderness EXTREMITIES: No edema of feet. - Labs CBC & Chem 7: 07/10/22 04:45 07/10/22 04:45 Labs: Abnormal Lab Results - Last 24 Hours (Table) 07/11/22 Range/Units 05:56 C-Reactive Protein 2.50 H (0.00-0.80) mg/dL Microbiology - Last 24 Hours (Table) 07/09/22 13:30 Blood Culture - Preliminary Blood No Growth after 48 hours Assessment and Plan (1) Pneumonia Current Visit: Yes Status: Acute Code(s): J18.9 - PNEUMONIA, UNSPECIFIED ORGANISM SNOMED Code(s): 989131676 Plan: 1patient presented to hospital with increasing shortness of breath which is likely multifactorial in this patient who do have evidence of interstitial infiltrate but no focal consolidation question of possible atypical pneumonia with a recent diagnosis of pneumocystis at [facility] could be likely etiology versus gram-negative pneumonia. 2 Obtain sputum for gram stain and culture 3 records from [facility] were reviewed with her crimper operator and BAL is positive for pneumocystis. 4patient slowly clinical improvement the patient will continue with the Bactrim DS, that'll be transitioned to oral on discharge
--- NOTE | 2022-07-12 14:11 | P.PN ---
Subjective Progress Note Date: 07/12/22 71-year-old male patient came into the ED because of worsening shortness of breath. He was found to be hypoxic. There is currently at [facility] , and our understanding is that the patient was send her after he was hospitalized at [facility] in [place] and he was given systemic chemotherapy for metastatic pancreas cancer. During the same hospitalization, the patient underwent a bronchoscopy and bronchoalveolar lavage that was done was positive for pneumocystis Jev. . Diagnostic circumstances are not known. I believe this was a bronchoscopy and bronchial lavage and I'm not sure the patient was to Bactrim accordingly. senior living medication list, there is no antimicrobial treatment directed towards pneumocystis infection. The patient has no previous history of DVTs or pulmonary embolism. Nausea of any aspiration. No nausea or vomiting or abdominal pain. CAT scan of the chest was done in the ED and it showed moderate degree of emphysematous changes bilaterally and peripheral bullae and bleb formation. There was increased ground glass opacity and interlobular septal th ickening in the bilateral lungs reveal distant apparently suggesting of an underlying pneumonia/infection. No evidence of any pleural effusion. No mediastinal lymphadenopathy. There was a mass in the tail of the pancreas. This was quite worrisome for pancreatic cancer and the patient has also solid lesion in the liver suggestive of metastatic disease. For now, the patient is on 5 L O2 nasal cannula. The wound was closed of 15.2. Hemoglobin is 12.6. D-dimer is at 1.9 with a normal cognition profile. Electrolytes are normal. Influenza a and B were negative. Covid 19 testing by PCR was negative. RSV was negative. ProBNP level was 1590. Troponins are negative. The patient is seen today 07/10/2022 in follow-up on the regular medical floor. He is currently resting comfortably in bed. He is awake and alert. He is maintaining O2 saturations in the 90s on 2 L/m per nasal cannula. White count 13.7. Hemoglobin 10.9. Sodium 139. Potassium 3.4. BUN 13. Creatinine 0.6. Glucose 123. He is continued on IV Bactrim, cefepime and azithromycin. Further bronchial wash cultures from [facility] are pending. 07/11/2022, seeing the patient for a follow-up clinically the same. No significant Changes. No significant shortness of breath. Remains on the same antibiotic coverage.HIV screen was negative. No nausea. No vomiting. No abdominal pain. No fever or chills. Infectious disease is still looking into this possibility of pneumocystis infection and this is based on the bronchial lavage that was done on 06/28/2022. 07/12/2022, the patient remains on Bactrim. Doing well. No new complaints. Appetite is good. Drinking ensure. No chest pain. No cough or sputum production. No fever. The patient remains on 2 L of oxygen by nasal cannula with a pulse ox of 94%. The patient otherwise has no other specific complaints. Infectious diseases on the case. HIV was negative Objective - Vital Signs Vital signs: Vital Signs Temp 97.6 F 07/12/22 07:56 Pulse 100 07/12/22 12:30 Resp 17 07/12/22 07:56 BP 108/61 07/12/22 07:56 Pulse Ox 94 L 07/12/22 09:15 FiO2 Intake & Output 07/11/22 07/12/22 07/12/22 18:59 06:59 18:59 Intake Total 850 50 Output Total 1575 Balance 850 -1525 Weight 51.71 kg Intake: Intake, IV Titration 850 Amount Azithromycin 500 mg In 250 Sodium Chloride 0.9% 250 ml @ 250 mls/hr IVPB DAILY@1200 [facility] Rx#: [id number] Cefepime 2 gm In Sodium 100 Chloride 0.9% 100 ml @ 25 mls/hr IVPB Q8H [facility] Rx#: [id number] Sulfamethox-Tmp 80-16Mg/ 500 ml 256 mg In Dextrose 5% in Water 500 ml @ 333.33 mls/hr IVPB Q6H [facility] Rx#: [id number] Oral 50 Output: Urine 1575 Other: Voiding Method Urinal # Voids 3 - Exam GENERAL EXAM: Alert, frail, pleasant 71-year-old male patient, on 2 L nasal cannula, comfortable in no apparent distress. HEAD: Normocephalic. EYES: Normal reaction of pupils, equal size. NOSE: Clear with pink turbinates. THROAT: No erythema or exudates. NECK: No masses, no JVD. CHEST: No chest wall deformity. LUNGS: Equal air entry with bilateral scattered rhonchi. CVS: S1 and S2 normal with no audible murmur, regular rhythm. ABDOMEN: No hepatosplenomegaly, normal bowel sounds, no guarding or rigidity. SPINE: No scoliosis or deformity SKIN: No rashes CENTRAL NERVOUS SYSTEM: No focal deficits, tone is normal in all 4 extremities. EXTREMITIES: There is no peripheral edema. No clubbing, no cyanosis. Peripheral pulses are intact. - Labs CBC & Chem 7: 07/10/22 04:45 07/10/22 04:45 Labs: Abnormal Lab Results - Last 24 Hours (Table) 07/11/22 Range/Units 05:56 C-Reactive Protein 2.50 H (0.00-0.80) mg/dL Microbiology - Last 24 Hours (Table) 07/09/22 13:30 Blood Culture - Preliminary Blood No Growth after 48 hours Assessment and Plan Assessment: Shortness of breath likely secondary to bilateral pneumonia. The patient underwent a bronchoscopy at [facility] in [place], the patient was found to have a pneumocystis Jivoreci infection. He was probably immunocompromised to systemic chemotherapy and he developed a pneumocystis pneumonia based on the records forwarded to us. Acute hypoxic respiratory failure currently on 2 L oxygen by nasal cannula COPD with bilateral emphysematous changes History of pancreatic cancer, metastatic with solid lesion in the liver , Being treated with systemic chemotherapy Hypothyroidism Hyperlipidemia Chronic depression Plan: Continue same treatment and the patient is covered with Bactroban regarding pneumocystis pneumonia clinically stable and patient is improving Stable and on 2 L nasal cannula We will continue to follow
[2022-07-12] MEDS ORDERED: Potassium Replacement Protocol 1 EACH MISC MISCELLANE PRN (22:16)
[2022-07-12] MEDS: POTASSIUM CHLORIDE ER 20 MEQ TAB.ER PO SCH ×2 (22:56→23:42)
[2022-07-12] MEDS: ATORVASTATIN 20 MG TAB PO SCH (22:57)
[2022-07-13] MEDS: DEXTROSE 5% IVPB SCH ×6 (04:13→18:18)
[2022-07-13] MEDS: SULFAMETHOX TMP IVPB SCH ×6 (04:13→18:18)
[2022-07-13] MEDS: WATER IVPB SCH ×6 (04:13→18:18)
[2022-07-13] MEDS: CEFEPIME 2 GM in SODIUM CHLORIDE 0.9% 100 ML IVPB SCH ×3 (04:13→18:23)
[2022-07-13] MEDS: SUCRALFATE 1 GM TAB PO SCH ×3 (06:12→17:31)
[2022-07-13] MEDS: LEVOTHYROXINE 25 MCG TAB PO SCH (06:12)
--- NOTE | 2022-07-13 07:30 | PN ---
PROGRESS NOTE DATE OF SERVICE: 07/12/2022 SUBJECTIVE: This is a 71-year-old gentleman who was admitted with shortness of breath, bilateral interstitial pneumonia, also PCP positive. The patient is being treated with cefepime as well as Bactrim. No chest pain, no palpitations, no fever. OBJECTIVE: VITAL SIGNS: Pulse is 104, blood pressure 130/86, and respirations 17. HEENT: Conjunctivae normal. NECK: No jugular venous distention. RESPIRATIONS: Diminished at the bases, few rhonchi, no crackles. ABDOMEN: Soft. NERVOUS SYSTEM: Nonfocal. LABS: Reviewed. HIV is negative. The rest of the labs also noted. ASSESSMENT: 1. Shortness of breath, possible acute bilateral interstitial pneumonia, possibly PCP pneumonia as well as gram-negative pneumonia, hospital-acquired. 2. 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 3. Hypertension. 4. Hyperlipidemia. 5. History of pancreatic cancer. 6. Depression. 7. Multiple medical issues. RECOMMENDATIONS: Recommended to continue current medications and symptomatic treatment, otherwise at this time continue with antibiotics, bronchodilators. Cultures here are negative so far. Further recommendations to follow. See orders for details. MMODL / IJN: [id number] /
[2022-07-13] MEDS: polyethylene glycoL 3350 17 GM POWD.PACK PO SCH (08:21)
[2022-07-13] MEDS: ARIPiprazole 15 MG TAB PO SCH (08:28)
[2022-07-13] MEDS: SODIUM BICARBONATE TAB 650 MG TAB PO SCH ×3 (08:28→20:33)
[2022-07-13] MEDS: PANTOPRAZOLE 40 MG TABLET PO SCH (08:28)
[2022-07-13] MEDS: METOPROLOL TARTRATE 12.5 MG TAB PO SCH ×2 (08:28→20:33)
[2022-07-13] MEDS: HEPARIN SODIUM,PORCINE/PF 5,000 UNIT/0.5 ML SYRINGE SQ SCH ×2 (08:29→20:33)
[2022-07-13] MEDS: MIDODRINE 5 MG TAB PO SCH ×3 (08:29→17:31)
[2022-07-13] MEDS: SERTRALINE 100 MG TAB PO SCH (08:29)
[2022-07-13] MEDS: SYMBICORT 160-4.5 MCG INHALER INHALATION SCH ×2 (08:56→19:54)
[2022-07-13] MEDS: IPRATROPIUM-ALBUTEROL 3 ML NEB INHALATION SCH ×4 (08:56→19:54)
--- NOTE | 2022-07-13 11:21 | P.PN ---
Subjective Progress Note Date: 07/13/22 Principal diagnosis: pneumonia Patient is a 71-year-old male with a past medical history significant for metastatic pancreatic cancer on chemotherapy and recent diagnosis of pneumocystis pneumonia in the outside hospital presenting fci with increasing shortness of breath patient did have hypoxic but afebrile elevated white count and CT angiogram shows interstitial infiltrate. Patient recently did have a bronchoscopy done at [facility] and was positive for pneumocystis On today's evaluation that is 07/13/2022 the patient remains to be afebrile pa tient is currently breathing comfortably on room air this morning, the patient denies chest pain, the patient cough has decreased in intensity mostly dry in nature, the patient denies having any nausea no vomiting and no diarrhea Objective - Vital Signs Vital signs: Vital Signs Temp 97.5 F L 07/13/22 08:00 Pulse 98 07/13/22 09:10 Resp 18 07/13/22 08:00 BP 108/66 07/13/22 08:00 Pulse Ox 94 L 07/13/22 08:56 FiO2 Intake & Output 07/12/22 07/13/22 07/13/22 18:59 06:59 18:59 Weight 51.71 kg Other: Voiding Method External Catheter External Catheter # Voids 3 3 3 # Bowel Movements 1 - Exam GENERAL DESCRIPTION: Elderly male lying in bed, no distress. No tachypnea or accessory muscle of respiration use. LUNGS: Unlabored breathing. Decreased breath sound at the base HEART: S1, S2, regular rate and rhythm. No loud murmur ABDOMEN: Soft, no tenderness EXTREMITIES: No edema of feet. - Labs CBC & Chem 7: 07/10/22 04:45 07/10/22 04:45 Labs: Microbiology - Last 24 Hours (Table) 07/09/22 13:30 Blood Culture - Preliminary Blood No Growth after 72 hours Assessment and Plan (1) Pneumonia Current Visit: Yes Status: Acute Code(s): J18.9 - PNEUMONIA, UNSPECIFIED ORGANISM SNOMED Code(s): 275978580 Plan: 1patient presented to hospital with increasing shortness of breath which is likely multifactorial in this patient who do have evidence of interstitial infiltrate but no focal consolidation question of possible atypical pneumonia with a recent diagnosis of pneumocystis at [facility] could be likely etiology versus gram-negative pneumonia. 2 Obtain sputum for gram stain and culture 3 records from [facility] were reviewed and BAL is positive for pneumocystis. 4patient has shown clinical improvement the patient will continue with the Bactrim IV that we'll be switched to by mouth on discharge repeat blood work has been ordered for the morning Time with Patient: Less than 30
[2022-07-13 11:54] LABS: Basophils # (A) 0.05 X 10*3/uL (0.00-0.10); Basophils % (A) 0.5 %; Eosinophils # (A) 0.24 X 10*3/uL (0.04-0.35); Eosinophils % (A) 2.3 %; HCT 34.5 % (39.6-50.0); HGB 10.6 g/dL (13.0-17.0); Immature Grans, Automated 0.5 %; Lymphocytes # (A) 1.53 X 10*3/uL (0.90-5.00); Lymphocytes % (A) 14.6 %; MCH 29.4 pg (27.0-32.0); MCHC 30.7 g/dL (32.0-37.0); MCV 95.8 fL (80.0-97.0); Mean Platelet Volume 12.4 fL (9.5-12.2); Monocytes # (A) 0.58 X 10*3/uL (0.20-1.00); Monocytes % (A) 5.5 %; NRBC Per 100 WBC 0 /100 WBCS (0.0-0.0); Neutrophils # (A) 8.02 X 10*3/uL (1.80-7.70); Neutrophils % (A) 76.6 %; Platelet Count 112 X 10*3/uL (140-440); RDW 16.5 % (11.5-14.5); WBC 10.47 X 10*3/uL (4.50-10.00)
--- NOTE | 2022-07-13 11:57 | P.PN ---
Subjective This is a pleasant 71 years old male with multiple medical problems including but not limited to his pancreatic mass and cancer with probable metastasis to the liver, Patient was admitted with respiratory symptoms and hypoxia injury to bacterial infection either gram-negative bacilli versus pneumocystis Carrie discovered at [facility] and patient been followed by pulmonary and ID team and currently covered with cefepime and Bactrim Patient states that his dyspnea is better and currently he is on 2 L oxygen via nasal cannula, patient was not on home oxygen. He eats well with no diarrhea He is saturating 94% on 2 L, WBC 13.7, hemoglobin 10.4 Patient may benefit from ECF upon discharge, patient informed and he agrees. Objective - Vital Signs Vital signs: Vital Signs Temp 97.5 F L 07/13/22 08:00 Pulse 98 07/13/22 09:10 Resp 18 07/13/22 08:00 BP 108/66 07/13/22 08:00 Pulse Ox 94 L 07/13/22 08:56 FiO2 Intake & Output 07/12/22 07/13/22 07/13/22 18:59 06:59 18:59 Weight 51.71 kg Other: Voiding Method External Catheter External Catheter # Voids 3 3 3 # Bowel Movements 1 - Exam GENERAL: The patient is alert and oriented x3, not in any acute distress. Well developed, well nourished. HEENT: Pupils are round and equally reacting to light. EOMI. No scleral icterus. No conjunctival pallor. Normocephalic, atraumatic. No pharyngeal erythema. No thyromegaly. CARDIOVASCULAR: S1 and S2 present. No murmurs, rubs, or gallops. PULMONARY: Chest is clear to auscultation, no wheezing or crackles. ABDOMEN: Soft, nontender, nondistended, normoactive bowel sounds. No palpable organomegaly. MUSCULOSKELETAL: No joint swelling or deformity. EXTREMITIES: No cyanosis, clubbing, or pedal edema. NEUROLOGICAL: Gross neurological examination did not reveal any focal deficits. SKIN: No rashes. no petechiae. - Labs CBC & Chem 7: 07/10/22 04:45 07/10/22 04:45 Labs: Microbiology - Last 24 Hours (Table) 07/09/22 13:30 Blood Culture - Preliminary Blood No Growth after 72 hours Assessment and Plan Assessment: Bacterial pneumonia with gram-negative bacilli versus pneumocystis infection Pancreatic cancer with possible metastasis to the liver Left common carotid artery occlusion, possible Leukocytosis Plan: Continue with cefepime and Bactrim Pulmonary and ID team on the case Labs and medication were reviewed.. Continue same treatment. Continue with symptomatic treatment. Resume home medication. Monitor labs and vitals. DVT and GI prophylaxis. Further recommendations as per clinical course of the valentino ent DVT prophylaxis: Subcutaneous heparin GI Prophylaxis: Ppi PT/OT: Pending Prognosis is guarded
[2022-07-13 12:37] LABS: African American GFR (CKD) 109.3 (60.0-200.0); Anion Gap 11.2 mmol/L (10.00-18.00); BUN/Creat Ratio 15.29 Ratio (12.00-20.00); Blood Urea Nitrogen 10.7 mg/dL (9.0-27.0); Calcium 8.8 mg/dL (8.7-10.3); Carbon Dioxide 19.8 mmol/L (20.0-27.5); Non-African American GFR(CKD) 94.3 (60.0-200.0); Potassium 5.1 mmol/L (3.5-5.5)
--- NOTE | 2022-07-13 18:09 | P.PN ---
Subjective Progress Note Date: 07/13/22 71-year-old male patient came into the ED because of worsening shortness of breath. He was found to be hypoxic. There is currently at [facility] , and our understanding is that the patient was send her after he was hospitalized at [facility] in [place] and he was given systemic chemotherapy for metastatic pancreas cancer. During the same hospitalization, the patient underwent a bronchoscopy and bronchoalveolar lavage that was done was positive for pneumocystis Jev. . Diagnostic circumstances are not known. I believe this was a bronchoscopy and bronchial lavage and I'm not sure the patient was to Bactrim accordingly. half-way medication list, there is no antimicrobial treatment directed towards pneumocystis infection. The patient has no previous history of DVTs or pulmonary embolism. Nausea of any aspiration. No nausea or vomiting or abdominal pain. CAT scan of the chest was done in the ED and it showed moderate degree of emphysematous changes bilaterally and peripheral bullae and bleb formation. There was increased ground glass opacity and interlobular septal th ickening in the bilateral lungs reveal distant apparently suggesting of an underlying pneumonia/infection. No evidence of any pleural effusion. No mediastinal lymphadenopathy. There was a mass in the tail of the pancreas. This was quite worrisome for pancreatic cancer and the patient has also solid lesion in the liver suggestive of metastatic disease. For now, the patient is on 5 L O2 nasal cannula. The wound was closed of 15.2. Hemoglobin is 12.6. D-dimer is at 1.9 with a normal cognition profile. Electrolytes are normal. Influenza a and B were negative. Covid 19 testing by PCR was negative. RSV was negative. ProBNP level was 1590. Troponins are negative. The patient is seen today 07/10/2022 in follow-up on the regular medical floor. He is currently resting comfortably in bed. He is awake and alert. He is maintaining O2 saturations in the 90s on 2 L/m per nasal cannula. White count 13.7. Hemoglobin 10.9. Sodium 139. Potassium 3.4. BUN 13. Creatinine 0.6. Glucose 123. He is continued on IV Bactrim, cefepime and azithromycin. Further bronchial wash cultures from [facility] are pending. 07/11/2022, seeing the patient for a follow-up clinically the same. No significant Changes. No significant shortness of breath. Remains on the same antibiotic coverage.HIV screen was negative. No nausea. No vomiting. No abdominal pain. No fever or chills. Infectious disease is still looking into this possibility of pneumocystis infection and this is based on the bronchial lavage that was done on 06/28/2022. 07/12/2022, the patient remains on Bactrim. Doing well. No new complaints. Appetite is good. Drinking ensure. No chest pain. No cough or sputum production. No fever. The patient remains on 2 L of oxygen by nasal cannula with a pulse ox of 94%. The patient otherwise has no other specific complaints. Infectious diseases on the case. HIV was negative On 07/13/2022, the patient is resting comfortably in bed on room air oxygen. Re harpreet on Bactrim. No new complaints. Tolerating his diet. No nausea vomiting or abdominal pain. No chest pain. No altered mentation. There was another 10.4 with a hemoglobin of 10.6. Sodium is at 132. Potassium levels at 5.1. Objective - Vital Signs Vital signs: Vital Signs Temp 98.0 F 07/13/22 14:00 Pulse 84 07/13/22 16:44 Resp 18 07/13/22 14:00 BP 109/61 07/13/22 14:00 Pulse Ox 95 07/13/22 14:00 FiO2 Intake & Output 07/12/22 07/13/22 07/13/22 18:59 06:59 18:59 Weight 51.71 kg Other: Voiding Method External Catheter External Catheter # Voids 3 3 3 # Bowel Movements 1 - Exam GENERAL EXAM: Alert, frail, pleasant 71-year-old male patient, on room air oxygen, comfortable in no apparent distress. HEAD: Normocephalic. EYES: Normal reaction of pupils, equal size. NOSE: Clear with pink turbinates. THROAT: No erythema or exudates. NECK: No masses, no JVD. CHEST: No chest wall deformity. LUNGS: Equal air entry with bilateral scattered rhonchi. CVS: S1 and S2 normal with no audible murmur, regular rhythm. ABDOMEN: No hepatosplenomegaly, normal bowel sounds, no guarding or rigidity. SPINE: No scoliosis or deformity SKIN: No rashes CENTRAL NERVOUS SYSTEM: No focal deficits, tone is normal in all 4 extremities. EXTREMITIES: There is no peripheral edema. No clubbing, no cyanosis. Peripheral pulses are intact. - Labs CBC & Chem 7: 07/13/22 06:34 07/13/22 06:34 Labs: Abnormal Lab Results - Last 24 Hours (Table) 07/13/22 07/13/22 Range/Units 06:34 06:34 WBC 10.47 H (4.50-10.00) X 10*3/uL RBC 3.60 L (4.40-5.60) X 10*6/uL Hgb 10.6 L (13.0-17.0) g/dL Hct 34.5 L (39.6-50.0) % MCHC 30.7 L (32.0-37.0) g/dL RDW 16.5 H (11.5-14.5) % Plt Count 112 L (140-440) X 10*3/uL MPV 12.4 H (9.5-12.2) fL Immature Gran # 0.05 H (0.00-0.04) X 10*3/uL Neutrophils # 8.02 H (1.80-7.70) X 10*3/uL Sodium 132 L (135-145) mmol/L Carbon Dioxide 19.8 L (20.0-27.5) mmol/L Microbiology - Last 24 Hours (Table) 07/09/22 13:30 Blood Culture - Preliminary Blood No Growth after 96 hours Assessment and Plan Assessment: Shortness of breath likely secondary to bilateral pneumonia. The patient underwent a bronchoscopy at [facility] in [place], the patient was found to have a pneumocystis Jivoreci infection. He was probably immunocompromised to systemic chemotherapy and he developed a pneumocystis pneumonia based on the records forwarded to us.patient's clinical improvement while on Bactrim Acute hypoxic respiratory failure currently on room air oxygen COPD with bilateral emphysematous changes History of pancreatic cancer, metastatic with solid lesion in the liver , Being treated with systemic chemotherapy Hypothyroidism Hyperlipidemia Chronic depression Plan: Continue same treatment and the patient is covered with Bactrim regarding pneumocystis pneumonia clinically stable and patient is improving switch to oral antibiotics at the time of discharge Currently on room air oxygen no toxicities to the antibiotics
[2022-07-13] MEDS: ATORVASTATIN 20 MG TAB PO SCH (20:33)
[2022-07-14] MEDS: DEXTROSE 5% IVPB SCH ×10 (00:30→23:57)
[2022-07-14] MEDS: SULFAMETHOX TMP IVPB SCH ×10 (00:30→23:57)
[2022-07-14] MEDS: SUCRALFATE 1 GM TAB PO SCH ×5 (00:30→23:57)
[2022-07-14] MEDS: WATER IVPB SCH ×10 (00:30→23:57)
[2022-07-14] MEDS: CEFEPIME 2 GM in SODIUM CHLORIDE 0.9% 100 ML IVPB SCH ×2 (02:27→11:42)
[2022-07-14] MEDS: LEVOTHYROXINE 25 MCG TAB PO SCH (06:15)
[2022-07-14] MEDS: IPRATROPIUM-ALBUTEROL 3 ML NEB INHALATION SCH ×4 (07:20→20:46)
[2022-07-14] MEDS: SYMBICORT 160-4.5 MCG INHALER INHALATION SCH ×2 (07:20→20:47)
[2022-07-14] MEDS: MIDODRINE 5 MG TAB PO SCH ×3 (08:21→17:32)
[2022-07-14] MEDS: SERTRALINE 100 MG TAB PO SCH (08:21)
[2022-07-14] MEDS: PANTOPRAZOLE 40 MG TABLET PO SCH (08:21)
[2022-07-14] MEDS: METOPROLOL TARTRATE 12.5 MG TAB PO SCH ×2 (08:21→21:42)
[2022-07-14] MEDS: HEPARIN SODIUM,PORCINE/PF 5,000 UNIT/0.5 ML SYRINGE SQ SCH (08:21)
[2022-07-14] MEDS: ARIPiprazole 15 MG TAB PO SCH (08:22)
[2022-07-14] MEDS: SODIUM BICARBONATE TAB 650 MG TAB PO SCH ×3 (08:22→21:42)
[2022-07-14] MEDS: polyethylene glycoL 3350 17 GM POWD.PACK PO SCH (10:38)
--- NOTE | 2022-07-14 13:12 | P.PN ---
Subjective This is a pleasant 71 years old male with multiple medical problems including but not limited to his pancreatic mass and cancer with probable metastasis to the liver, Patient was admitted with respiratory symptoms and hypoxia injury to bacterial infection either gram-negative bacilli versus pneumocystis Carrie discovered at [facility] and patient been followed by pulmonary and ID team and currently covered with cefepime and Bactrim Patient states that his dyspnea is better and currently he is on 2 L oxygen via nasal cannula, patient was not on home oxygen. He eats well with no diarrhea He is saturating 94% on 2 L, WBC 13.7, hemoglobin 10.4 Patient may benefit from ECF upon discharge, patient informed and he agrees. 07/14/2012 He still breathing quietly while he is resting in bed He is saturating 99% on room air No labs from today He remains on Bactrim and cefepime Check labs in the morning Patient will benefit from ECF for rehab Objective - Vital Signs Vital signs: Vital Signs Temp 97.8 F 07/14/22 08:00 Pulse 96 07/14/22 11:14 Resp 20 07/14/22 08:00 BP 98/58 07/14/22 08:00 Pulse Ox 98 07/14/22 08:00 FiO2 Intake & Output 07/13/22 07/14/22 07/14/22 18:59 06:59 18:59 Other: Voiding Method External Catheter # Voids 2 # Bowel Movements 1 - Exam GENERAL: The patient is alert and oriented x3, not in any acute distress. Well developed, well nourished. HEENT: Pupils are round and equally reacting to light. EOMI. No scleral icterus. No conjunctival pallor. Normocephalic, atraumatic. No pharyngeal erythema. No thyromegaly. CARDIOVASCULAR: S1 and S2 present. No murmurs, rubs, or gallops. PULMONARY: Chest is clear to auscultation, no wheezing or crackles. ABDOMEN: Soft, nontender, nondistended, normoactive bowel sounds. No palpable organomegaly. MUSCULOSKELETAL: No joint swelling or deformity. EXTREMITIES: No cyanosis, clubbing, or pedal edema. NEUROLOGICAL: Gross neurological examination did not reveal any focal deficits. SKIN: No rashes. no petechiae. - Labs CBC & Chem 7: 07/13/22 06:34 07/13/22 06:34 Labs: Microbiology - Last 24 Hours (Table) 07/09/22 13:30 Blood Culture - Preliminary Blood No Growth after 96 hours Assessment and Plan Assessment: Bacterial pneumonia with gram-negative bacilli versus pneumocystis infection Pancreatic cancer with possible metastasis to the liver Left common carotid artery occlusion, possible Leukocytosis Plan: Continue with cefepime and Bactrim Pulmonary and ID team on the case Labs and medication were reviewed.. Continue same treatment. Continue with symptomatic treatment. Resume home medication. Monitor labs and vitals. DVT and GI prophylaxis. Further recommendations as per clinical course of the patient DVT prophylaxis: Subcutaneous heparin GI Prophylaxis: Ppi PT/OT: Pending Prognosis is guarded
[2022-07-14 13:46] LABS: African American GFR (CKD) 103.5 (60.0-200.0); Anion Gap 10.2 mmol/L (10.00-18.00); BUN/Creat Ratio 13.28 Ratio (12.00-20.00); Blood Urea Nitrogen 10.6 mg/dL (9.0-27.0); Calcium 8.3 mg/dL (8.7-10.3); Carbon Dioxide 18.1 mmol/L (20.0-27.5); Non-African American GFR(CKD) 89.3 (60.0-200.0); Potassium 4.3 mmol/L (3.5-5.5)
[2022-07-14 14:09] LABS: Basophils # (A) 0.04 X 10*3/uL (0.00-0.10); Basophils % (A) 0.4 %; Eosinophils # (A) 0.27 X 10*3/uL (0.04-0.35); Eosinophils % (A) 2.6 %; HCT 33.3 % (39.6-50.0); HGB 10.4 g/dL (13.0-17.0); Immature Grans, Automated 0.8 %; Lymphocytes # (A) 2.29 X 10*3/uL (0.90-5.00); Lymphocytes % (A) 21.8 %; MCH 29.1 pg (27.0-32.0); MCHC 31.2 g/dL (32.0-37.0); Mean Platelet Volume 12.1 fL (9.5-12.2); Monocytes # (A) 0.44 X 10*3/uL (0.20-1.00); Monocytes % (A) 4.2 %; NRBC Per 100 WBC 0 /100 WBCS (0.0-0.0); Neutrophils # (A) 7.37 X 10*3/uL (1.80-7.70); Neutrophils % (A) 70.2 %; Platelet Count 96 X 10*3/uL (140-440); RBC 3.58 X 10*6/uL (4.40-5.60); RDW 16.6 % (11.5-14.5); WBC 10.49 X 10*3/uL (4.50-10.00)
--- NOTE | 2022-07-14 14:39 | P.PN ---
Subjective Progress Note Date: 07/14/22 71-year-old male patient came into the ED because of worsening shortness of breath. He was found to be hypoxic. There is currently at [facility] , and our understanding is that the patient was send her after he was hospitalized at [facility] in [place] and he was given systemic chemotherapy for metastatic pancreas cancer. During the same hospitalization, the patient underwent a bronchoscopy and bronchoalveolar lavage that was done was positive for pneumocystis Jev. . Diagnostic circumstances are not known. I believe this was a bronchoscopy and bronchial lavage and I'm not sure the patient was to Bactrim accordingly. [facility] medication list, there is no antimicrobial treatment directed towards pneumocystis infection. The patient has no previous history of DVTs or pulmonary embolism. Nausea of any aspiration. No nausea or vomiting or abdominal pain. CAT scan of the chest was done in the ED and it showed moderate degree of emphysematous changes bilaterally and peripheral bullae and bleb formation. There was increased ground glass opacity and interlobular septal th ickening in the bilateral lungs reveal distant apparently suggesting of an underlying pneumonia/infection. No evidence of any pleural effusion. No mediastinal lymphadenopathy. There was a mass in the tail of the pancreas. This was quite worrisome for pancreatic cancer and the patient has also solid lesion in the liver suggestive of metastatic disease. For now, the patient is on 5 L O2 nasal cannula. The wound was closed of 15.2. Hemoglobin is 12.6. D-dimer is at 1.9 with a normal cognition profile. Electrolytes are normal. Influenza a and B were negative. Covid 19 testing by PCR was negative. RSV was negative. ProBNP level was 1590. Troponins are negative. The patient is seen today 07/10/2022 in follow-up on the regular medical floor. He is currently resting comfortably in bed. He is awake and alert. He is maintaining O2 saturations in the 90s on 2 L/m per nasal cannula. White count 13.7. Hemoglobin 10.9. Sodium 139. Potassium 3.4. BUN 13. Creatinine 0.6. Glucose 123. He is continued on IV Bactrim, cefepime and azithromycin. Further bronchial wash cultures from [facility] are pending. 07/11/2022, seeing the patient for a follow-up clinically the same. No significant Changes. No significant shortness of breath. Remains on the same antibiotic coverage.HIV screen was negative. No nausea. No vomiting. No abdominal pain. No fever or chills. Infectious disease is still looking into this possibility of pneumocystis infection and this is based on the bronchial lavage that was done on 06/28/2022. 07/12/2022, the patient remains on Bactrim. Doing well. No new complaints. Appetite is good. Drinking ensure. No chest pain. No cough or sputum production. No fever. The patient remains on 2 L of oxygen by nasal cannula with a pulse ox of 94%. The patient otherwise has no other specific complaints. Infectious diseases on the case. HIV was negative On 07/13/2022, the patient is resting comfortably in bed on room air oxygen. Re harpreet on Bactrim. No new complaints. Tolerating his diet. No nausea vomiting or abdominal pain. No chest pain. No altered mentation. There was another 10.4 with a hemoglobin of 10.6. Sodium is at 132. Potassium levels at 5.1. On 07/14/2022, clinically stable on room air oxygen and the patient continues to take his antibiotics with Bactrim. No new complaints. W is currently at 10.4 hemoglobin 10.4 platelet count is 96. Sodium is 129, BUN is at 10 with a creatinine of 0.8. There is a drop in the platelet count which could be medication induced. Objective - Vital Signs Vital signs: Vital Signs Temp 97.8 F 07/14/22 08:00 Pulse 96 07/14/22 11:14 Resp 20 07/14/22 08:00 BP 98/58 07/14/22 08:00 Pulse Ox 98 07/14/22 08:00 FiO2 Intake & Output 07/13/22 07/14/22 07/14/22 18:59 06:59 18:59 Other: Voiding Method External Catheter # Voids 2 # Bowel Movements 1 - Exam GENERAL EXAM: Alert, frail, pleasant 71-year-old male patient, on room air oxygen, comfortable in no apparent distress. HEAD: Normocephalic. EYES: Normal reaction of pupils, equal size. NOSE: Clear with pink turbinates. THROAT: No erythema or exudates. NECK: No masses, no JVD. CHEST: No chest wall deformity. LUNGS: Equal air entry with bilateral scattered rhonchi. CVS: S1 and S2 normal with no audible murmur, regular rhythm. ABDOMEN: No hepatosplenomegaly, normal bowel sounds, no guarding or rigidity. SPINE: No scoliosis or deformity SKIN: No rashes CENTRAL NERVOUS SYSTEM: No focal deficits, tone is normal in all 4 extremities. EXTREMITIES: There is no peripheral edema. No clubbing, no cyanosis. Peripheral pulses are intact. - Labs CBC & Chem 7: 07/14/22 07:35 07/14/22 07:35 Labs: Abnormal Lab Results - Last 24 Hours (Table) 07/14/22 07/14/22 Range/Units 07:35 07:35 WBC 10.49 H (4.50-10.00) X 10*3/uL RBC 3.58 L (4.40-5.60) X 10*6/uL Hgb 10.4 L (13.0-17.0) g/dL Hct 33.3 L (39.6-50.0) % MCHC 31.2 L (32.0-37.0) g/dL RDW 16.6 H (11.5-14.5) % Plt Count 96 L (140-440) X 10*3/uL Plt Count Comment DECREASED A Immature Gran # 0.08 H (0.00-0.04) X 10*3/uL Sodium 129 L (135-145) mmol/L Carbon Dioxide 18.1 L (20.0-27.5) mmol/L Glucose 145 H (70-110) mg/dL Calcium 8.3 L (8.7-10.3) mg/dL Microbiology - Last 24 Hours (Table) 07/09/22 13:30 Blood Culture - Preliminary Blood No Growth after 96 hours Assessment and Plan Assessment: Shortness of breath likely secondary to bilateral pneumonia. The patient unde rwent a bronchoscopy at [facility] in [place], the patient was found to have a pneumocystis Jivoreci infection. He was probably immunocompromised to systemic chemotherapy and he developed a pneumocystis pneumonia based on the records forwarded to us. The patient is showing signs of clinical improvement while on Bactrim Acute hypoxic respiratory failure currently on room air oxygen COPD with bilateral emphysematous changes History of pancreatic cancer, metastatic with solid lesion in the liver , Being treated with systemic chemotherapy Hypothyroidism Hyperlipidemia Chronic depression Plan: Patient is currently on room air oxygen Cefepime can be discontinued Monitor platelet count and stop subcu heparin Continue same treatment and the patient is covered with Bactrim regarding pneumocystis pneumonia clinically stable and patient is improving switch to oral antibiotics at the time of discharge Currently on room air oxygen no toxicities to the antibiotics Plan: Shortness of breath likely secondary to bilateral pneumonia. The patient unde rwent a bronchoscopy at [facility] in [place], the patient was found to have a pneumocystis Jivoreci infection. He was probablycompressed to systemic chemotherapy and he developed a pneumocystis pneumonia based on the records forwarded to us. Acute hypoxic respiratory failure currently on 5 L oxygen by nasal cannula COPD with bilateral emphysematous changes History of pancreatic cancer, metastatic with solid lesion in the liver , Being treated with systemic chemotherapy Hypothyroidism Hyperlipidemia Chronic depression Plan Agree on the current antibiotic coverage. Nevertheless I think it's important to cover this patient also with Bactrim pending further information before that was from [facility] where the patient was treated. The patient accordingly started on Bactrim Titrate FiO2 to maintain saturation above 90% Obtain records Oncology consultation We'll continue to follow.
--- NOTE | 2022-07-14 21:29 | P.PN ---
Subjective Progress Note Date: 07/14/22 Principal diagnosis: pneumonia Patient is a 71-year-old male with a past medical history significant for metastatic pancreatic cancer on chemotherapy and recent diagnosis of pneumocystis pneumonia in the outside hospital presenting group home with increasing shortness of breath patient did have hypoxic but afebrile elevated white count and CT angiogram shows interstitial infiltrate. Patient recently did have a bronchoscopy done at [facility] and was positive for pneumocystis On today's evaluation that is 07/14/2022 the patient continues to be afebrile patient is breathing comfortably on room air, the patient denies chest pain, the patient cough has decreased in intensity and the patient not bringing up any sputum, the patient denies having any nausea no vomiting and no diarrhea Objective - Vital Signs Vital signs: Vital Signs Temp 97.6 F 07/14/22 14:00 Pulse 84 07/14/22 14:00 Resp 19 07/14/22 14:00 BP 103/62 07/14/22 14:00 Pulse Ox 95 07/14/22 14:00 FiO2 Intake & Output 07/13/22 07/14/22 07/14/22 18:59 06:59 18:59 Other: Voiding Method External Catheter # Voids 2 # Bowel Movements 1 - Exam GENERAL DESCRIPTION: Elderly male lying in bed, no distress. No tachypnea or accessory muscle of respiration use. LUNGS: Unlabored breathing. Decreased breath sound at the base HEART: S1, S2, regular rate and rhythm. No loud murmur ABDOMEN: Soft, no tenderness EXTREMITIES: No edema of feet. - Labs CBC & Chem 7: 07/14/22 07:35 07/14/22 07:35 Labs: Abnormal Lab Results - Last 24 Hours (Table) 07/14/22 07/14/22 Range/Units 07:35 07:35 WBC 10.49 H (4.50-10.00) X 10*3/uL RBC 3.58 L (4.40-5.60) X 10*6/uL Hgb 10.4 L (13.0-17.0) g/dL Hct 33.3 L (39.6-50.0) % MCHC 31.2 L (32.0-37.0) g/dL RDW 16.6 H (11.5-14.5) % Plt Count 96 L (140-440) X 10*3/uL Plt Count Comment DECREASED A Immature Gran # 0.08 H (0.00-0.04) X 10*3/uL Sodium 129 L (135-145) mmol/L Carbon Dioxide 18.1 L (20.0-27.5) mmol/L Glucose 145 H (70-110) mg/dL Calcium 8.3 L (8.7-10.3) mg/dL Microbiology - Last 24 Hours (Table) 07/09/22 13:30 Blood Culture - Preliminary Blood No Growth after 96 hours Assessment and Plan (1) Pneumonia Current Visit: Yes Status: Acute Code(s): J18.9 - PNEUMONIA, UNSPECIFIED ORGANISM SNOMED Code(s): 591961971 Plan: 1patient presented to hospital with increasing shortness of breath which is likely multifactorial in this patient who do have evidence of interstitial infiltrate but no focal consolidation question of possible atypical pneumonia with a recent diagnosis of pneumocystis at [facility] could be likely etiology v ersus gram-negative pneumonia. 2 Obtain sputum for gram stain and culture 3 records from [facility] were reviewed and BAL is positive for pneumocystis. 4patient has shown clinical improvement the patient will continue with the Bactrim IV that we'll be switched to by mouth on discharge , discontinue cefepime and monitor clinical course closely Time with Patient: Less than 30
[2022-07-14] MEDS: ATORVASTATIN 20 MG TAB PO SCH (21:41)
[2022-07-15] MEDS: LEVOTHYROXINE 25 MCG TAB PO SCH (05:52)
[2022-07-15] MEDS: WATER IVPB SCH ×6 (05:52→18:45)
[2022-07-15] MEDS: SUCRALFATE 1 GM TAB PO SCH ×3 (05:52→17:56)
[2022-07-15] MEDS: SULFAMETHOX TMP IVPB SCH ×6 (05:52→18:45)
[2022-07-15] MEDS: DEXTROSE 5% IVPB SCH ×6 (05:52→18:45)
[2022-07-15] MEDS: MIDODRINE 5 MG TAB PO SCH ×3 (08:29→17:55)
[2022-07-15] MEDS: PANTOPRAZOLE 40 MG TABLET PO SCH (08:29)
[2022-07-15] MEDS: ARIPiprazole 15 MG TAB PO SCH (08:29)
[2022-07-15] MEDS: polyethylene glycoL 3350 17 GM POWD.PACK PO SCH (08:29)
[2022-07-15] MEDS: METOPROLOL TARTRATE 12.5 MG TAB PO SCH ×2 (08:29→20:40)
[2022-07-15] MEDS: SODIUM BICARBONATE TAB 650 MG TAB PO SCH ×3 (08:29→20:40)
[2022-07-15] MEDS: ENOXAPARIN 30 MG/0.3 ML SYRINGE SQ SCH (08:30)
[2022-07-15] MEDS: SERTRALINE 100 MG TAB PO SCH (08:30)
[2022-07-15] MEDS: IPRATROPIUM-ALBUTEROL 3 ML NEB INHALATION SCH ×4 (09:00→20:18)
[2022-07-15] MEDS: SYMBICORT 160-4.5 MCG INHALER INHALATION SCH ×2 (09:00→20:18)
[2022-07-15 09:09] LABS: African American GFR (CKD) 103.4 (60.0-200.0); Anion Gap 12.3 mmol/L (10.00-18.00); BUN/Creat Ratio 13.88 Ratio (12.00-20.00); Blood Urea Nitrogen 11.1 mg/dL (9.0-27.0); Calcium 9.2 mg/dL (8.7-10.3); Carbon Dioxide 21.7 mmol/L (20.0-27.5); Non-African American GFR(CKD) 89.2 (60.0-200.0); Potassium 4.9 mmol/L (3.5-5.5)
[2022-07-15 10:02] LABS: Basophils # (A) 0.07 X 10*3/uL (0.00-0.10); Basophils % (A) 0.6 %; Eosinophils # (A) 0.36 X 10*3/uL (0.04-0.35); Eosinophils % (A) 2.9 %; HCT 35.4 % (39.6-50.0); HGB 11.4 g/dL (13.0-17.0); Immature Grans, Automated 1.5 %; Lymphocytes # (A) 2.47 X 10*3/uL (0.90-5.00); MCH 29.2 pg (27.0-32.0); MCHC 32.2 g/dL (32.0-37.0); MCV 90.8 fL (80.0-97.0); Mean Platelet Volume 12.1 fL (9.5-12.2); Monocytes # (A) 0.61 X 10*3/uL (0.20-1.00); Monocytes % (A) 4.9 %; NRBC Per 100 WBC 0 /100 WBCS (0.0-0.0); Neutrophils # (A) 8.65 X 10*3/uL (1.80-7.70); Neutrophils % (A) 70.1 %; Platelet Count 112 X 10*3/uL (140-440); RDW 16.7 % (11.5-14.5); WBC 12.34 X 10*3/uL (4.50-10.00)
--- NOTE | 2022-07-15 13:39 | P.PN ---
Subjective Progress Note Date: 07/15/22 71-year-old male patient came into the ED because of worsening shortness of breath. He was found to be hypoxic. There is currently at [facility] , and our understanding is that the patient was send her after he was hospitalized at [facility] in [place] and he was given systemic chemotherapy for metastatic pancreas cancer. During the same hospitalization, the patient underwent a bronchoscopy and bronchoalveolar lavage that was done was positive for pneumocystis Jev. . Diagnostic circumstances are not known. I believe this was a bronchoscopy and bronchial lavage and I'm not sure the patient was to Bactrim accordingly. longterm medication list, there is no antimicrobial treatment directed towards pneumocystis infection. The patient has no previous history of DVTs or pulmonary embolism. Nausea of any aspiration. No nausea or vomiting or abdominal pain. CAT scan of the chest was done in the ED and it showed moderate degree of emphysematous changes bilaterally and peripheral bullae and bleb formation. There was increased ground glass opacity and interlobular septal th ickening in the bilateral lungs reveal distant apparently suggesting of an underlying pneumonia/infection. No evidence of any pleural effusion. No mediastinal lymphadenopathy. There was a mass in the tail of the pancreas. This was quite worrisome for pancreatic cancer and the patient has also solid lesion in the liver suggestive of metastatic disease. For now, the patient is on 5 L O2 nasal cannula. The wound was closed of 15.2. Hemoglobin is 12.6. D-dimer is at 1.9 with a normal cognition profile. Electrolytes are normal. Influenza a and B were negative. Covid 19 testing by PCR was negative. RSV was negative. ProBNP level was 1590. Troponins are negative. The patient is seen today 07/10/2022 in follow-up on the regular medical floor. He is currently resting comfortably in bed. He is awake and alert. He is maintaining O2 saturations in the 90s on 2 L/m per nasal cannula. White count 13.7. Hemoglobin 10.9. Sodium 139. Potassium 3.4. BUN 13. Creatinine 0.6. Glucose 123. He is continued on IV Bactrim, cefepime and azithromycin. Further bronchial wash cultures from [facility] are pending. 07/11/2022, seeing the patient for a follow-up clinically the same. No significant Changes. No significant shortness of breath. Remains on the same antibiotic coverage.HIV screen was negative. No nausea. No vomiting. No abdominal pain. No fever or chills. Infectious disease is still looking into this possibility of pneumocystis infection and this is based on the bronchial lavage that was done on 06/28/2022. 07/12/2022, the patient remains on Bactrim. Doing well. No new complaints. Appetite is good. Drinking ensure. No chest pain. No cough or sputum production. No fever. The patient remains on 2 L of oxygen by nasal cannula with a pulse ox of 94%. The patient otherwise has no other specific complaints. Infectious diseases on the case. HIV was negative On 07/13/2022, the patient is resting comfortably in bed on room air oxygen. Remains on Bactrim. No new complaints. Tolerating his diet. No nausea vomiting or abdominal pain. No chest pain. No altered mentation. There was another 10.4 with a hemoglobin of 10.6. Sodium is at 132. Potassium levels at 5.1. On 07/14/2022, clinically stable on room air oxygen and the patient continues to take his antibiotics with Bactrim. No new complaints. W is currently at 10.4 hemoglobin 10.4 platelet count is 96. Sodium is 129, BUN is at 10 with a creatinine of 0.8. There is a drop in the platelet count which could be medication induced. The patient is seen today July 15, 2022 in follow-up on the regular medical floor. He is currently awake and alert in no acute distress. Resting quite comfortably in bed. Maintaining O2 saturations in the 90s on room air. He is continued on IV Bactrim. Blood cultures revealed no growth. White count 12.3. Hemoglobin 11.4. Platelets 112,000. Sodium 132. Potassium 4.9. BUN 11. Creatinine 0.8. He remains on DuoNeb inhalations, Symbicort. Objective - Vital Signs Vital signs: Vital Signs Temp 97.4 F L 07/15/22 07:47 Pulse 80 07/15/22 12:35 Resp 18 07/15/22 08:00 BP 104/64 07/15/22 07:47 Pulse Ox 93 L 07/15/22 07:47 FiO2 Intake & Output 07/14/22 07/15/22 07/15/22 18:59 06:59 18:59 Intake Total 16 Output Total 600 1600 Balance -107 -5682 Weight 51.71 kg Intake: Oral 16 Output: Urine 600 1600 Other: Voiding Method External Catheter External Catheter - Exam GENERAL EXAM: Alert, frail, pleasant 71-year-old male patient, on room air, comfortable in no apparent distress. HEAD: Normocephalic. EYES: Normal reaction of pupils, equal size. NOSE: Clear with pink turbinates. THROAT: No erythema or exudates. NECK: No masses, no JVD. CHEST: No chest wall deformity. LUNGS: Equal air entry with bilateral scattered rhonchi. CVS: S1 and S2 normal with no audible murmur, regular rhythm. ABDOMEN: No hepatosplenomegaly, normal bowel sounds, no guarding or rigidity. SPINE: No scoliosis or deformity SKIN: No rashes CENTRAL NERVOUS SYSTEM: No focal deficits, tone is normal in all 4 extremities. EXTREMITIES: There is no peripheral edema. No clubbing, no cyanosis. Peripheral pulses are intact. - Labs CBC & Chem 7: 07/15/22 05:20 07/15/22 05:20 Labs: Abnormal Lab Results - Last 24 Hours (Table) 07/14/22 07/14/22 07/15/22 Range/Units 07:35 07:35 05:20 WBC 10.49 H 12.34 H (4.50-10.00) X 10*3/uL RBC 3.58 L 3.90 L (4.40-5.60) X 10*6/uL Hgb 10.4 L 11.4 L (13.0-17.0) g/dL Hct 33.3 L 35.4 L (39.6-50.0) % MCHC 31.2 L (32.0-37.0) g/dL RDW 16.6 H 16.7 H (11.5-14.5) % Plt Count 96 L 112 L (140-440) X 10*3/uL Plt Count Comment DECREASED A Immature Gran # 0.08 H 0.18 H (0.00-0.04) X 10*3/uL Neutrophils # 8.65 H (1.80-7.70) X 10*3/uL Eosinophils # 0.36 H (0.04-0.35) X 10*3/uL Sodium 129 L (135-145) mmol/L Carbon Dioxide 18.1 L (20.0-27.5) mmol/L Glucose 145 H (70-110) mg/dL Calcium 8.3 L (8.7-10.3) mg/dL 07/15/22 Range/Units 05:20 WBC (4.50-10.00) X 10*3/uL RBC (4.40-5.60) X 10*6/uL Hgb (13.0-17.0) g/dL Hct (39.6-50.0) % MCHC (32.0-37.0) g/dL RDW (11.5-14.5) % Plt Count (140-440) X 10*3/uL Plt Count Comment Immature Gran # (0.00-0.04) X 10*3/uL Neutrophils # (1.80-7.70) X 10*3/uL Eosinophils # (0.04-0.35) X 10*3/uL Sodium 132 L (135-145) mmol/L Carbon Dioxide (20.0-27.5) mmol/L Glucose (70-110) mg/dL Calcium (8.7-10.3) mg/dL Microbiology - Last 24 Hours (Table) 07/09/22 13:30 Blood Culture - Preliminary Blood No Growth after 120 hours Assessment and Plan Assessment: Shortness of breath likely secondary to bilateral pneumonia. The patient underwent a bronchoscopy at [facility] in [place], the patient was found to have a pneumocystis Jivoreci infection. He was probably immunocompromised to systemic chemotherapy and he developed a pneumocystis pneumonia based on the records forwarded to us. Improving and currently on room air. Acute hypoxic respiratory failure, recovered and currently on room air COPD with bilateral emphysematous changes History of pancreatic cancer, metastatic with solid lesion in the liver , Being treated with systemic chemotherapy Hypothyroidism Hyperlipidemia Chronic depression Plan: The patient was seen and evaluated Medications and labs reviewed Continue antibiotics per ID service Stable and on room air Cleared for discharge from the pulmonary standpoint I have personally seen and examined the patient, performed the documentation and the assessment and plan as written. Number of minutes spent on the visit: 10.
[2022-07-15] MEDS: ATORVASTATIN 20 MG TAB PO SCH (20:40)
--- NOTE | 2022-07-15 21:34 | P.PN ---
Subjective This is a pleasant 71 years old male with multiple medical problems including but not limited to his pancreatic mass and cancer with probable metastasis to the liver, Patient was admitted with respiratory symptoms and hypoxia injury to bacterial infection either gram-negative bacilli versus pneumocystis Carrie discovered at [facility] and patient been followed by pulmonary and ID team and currently covered with cefepime and Bactrim Patient states that his dyspnea is better and currently he is on 2 L oxygen via nasal cannula, patient was not on home oxygen. He eats well with no diarrhea He is saturating 94% on 2 L, WBC 13.7, hemoglobin 10.4 Patient may benefit from ECF upon discharge, patient informed and he agrees. 07/14/2012 He still breathing quietly while he is resting in bed He is saturating 99% on room air No labs from today He remains on Bactrim and cefepime Check labs in the morning Patient will benefit from ECF for rehab 07/15/2022 Patient is clinically stable and well, currently he's not dyspneic and he is on Coroomn air He was cleared for discharge by pulmonary service Also cefepime was discontinued by ID team and kept on Bactrim He has mild leukocytosis which is a stable, rest of labs including normal hemoglobin and platelet count are stable. Patient is medically stable for discharge pending placement, require prior authorization. Objective - Vital Signs Vital signs: Vital Signs Temp 98.3 F 07/15/22 19:32 Pulse 90 07/15/22 20:30 Resp 16 07/15/22 19:32 BP 104/52 07/15/22 19:32 Pulse Ox 95 07/15/22 20:18 FiO2 21 07/15/22 20:18 Intake & Output 07/15/22 07/15/22 07/16/22 06:59 18:59 06:59 Intake Total 16 Output Total 1600 800 Balance -1584 -800 Weight 51.71 kg Intake: Oral 16 Output: Urine 1600 800 Other: Voiding Method External Catheter External Catheter - Exam GENERAL: The patient is alert and oriented x3, not in any acute distress. Well developed, well nourished. HEENT: Pupils are round and equally reacting to light. EOMI. No scleral icterus. No conjunctival pallor. Normocephalic, atraumatic. No pharyngeal erythema. No thyromegaly. CARDIOVASCULAR: S1 and S2 present. No murmurs, rubs, or gallops. PULMONARY: Chest is clear to auscultation, no wheezing or crackles. ABDOMEN: Soft, nontender, nondistended, normoactive bowel sounds. No palpable organomegaly. MUSCULOSKELETAL: No joint swelling or deformity. EXTREMITIES: No cyanosis, clubbing, or pedal edema. NEUROLOGICAL: Gross neurological examination did not reveal any focal deficits. SKIN: No rashes. no petechiae. - Labs CBC & Chem 7: 07/15/22 05:20 07/15/22 05:20 Labs: Abnormal Lab Results - Last 24 Hours (Table) 07/15/22 07/15/22 Range/Units 05:20 05:20 WBC 12.34 H (4.50-10.00) X 10*3/uL RBC 3.90 L (4.40-5.60) X 10*6/uL Hgb 11.4 L (13.0-17.0) g/dL Hct 35.4 L (39.6-50.0) % RDW 16.7 H (11.5-14.5) % Plt Count 112 L (140-440) X 10*3/uL Immature Gran # 0.18 H (0.00-0.04) X 10*3/uL Neutrophils # 8.65 H (1.80-7.70) X 10*3/uL Eosinophils # 0.36 H (0.04-0.35) X 10*3/uL Sodium 132 L (135-145) mmol/L Microbiology - Last 24 Hours (Table) 07/09/22 13:30 Blood Culture - Final Blood No Growth after 144 hours Assessment and Plan Assessment: Bacterial pneumonia with gram-negative bacilli versus pneumocystis infection Pancreatic cancer with possible metastasis to the liver Left common carotid artery occlusion, possible Leukocytosis Plan: Continue with Bactrim Pulmonary and ID team on the casewho cleared the patient for discharge Labs and medication were reviewed.. Continue same treatment. Continue with symptomatic treatment. Resume home medication. Monitor labs and vitals. DVT and GI prophylaxis. Further recommendations as per clinical course of the patient DVT prophylaxis: Subcutaneous heparin GI Prophylaxis: Ppi PT/OT: subacute rehab, medically stable pending insurance authorization
--- NOTE | 2022-07-15 22:50 | P.PN ---
Subjective Progress Note Date: 07/15/22 Principal diagnosis: pneumonia Patient is a 71-year-old male with a past medical history significant for metastatic pancreatic cancer on chemotherapy and recent diagnosis of pneumocystis pneumonia in the outside hospital presenting [facility] with increasing shortness of breath patient did have hypoxic but afebrile elevated white count and CT angiogram shows interstitial infiltrate. Patient recently did have a bronchoscopy done at [facility] and was positive for pneumocystis On today's evaluation that is 07/15/2022 the patient remains to be afebrile pa tient is breathing comfortably on room air, the patient denies chest pain, the patient did have occasional dry cough, the patient denies having any nausea no vomiting and no diarrhea, patient is feeling better Objective - Vital Signs Vital signs: Vital Signs Temp 97.4 F L 07/15/22 07:47 Pulse 80 07/15/22 12:24 Resp 18 07/15/22 08:00 BP 104/64 07/15/22 07:47 Pulse Ox 93 L 07/15/22 07:47 FiO2 Intake & Output 07/14/22 07/15/22 07/15/22 18:59 06:59 18:59 Intake Total 16 Output Total 600 1600 Balance -600 -1584 Weight 51.71 kg Intake: Oral 16 Output: Urine 600 1600 Other: Voiding Method External Catheter External Catheter - Exam GENERAL DESCRIPTION: Elderly male lying in bed, no distress. No tachypnea or accessory muscle of respiration use. LUNGS: Unlabored breathing. Decreased breath sound at the base HEART: S1, S2, regular rate and rhythm. No loud murmur ABDOMEN: Soft, no tenderness EXTREMITIES: No edema of feet. - Labs CBC & Chem 7: 07/15/22 05:20 07/15/22 05:20 Labs: Abnormal Lab Results - Last 24 Hours (Table) 07/14/22 07/14/22 07/15/22 Range/Units 07:35 07:35 05:20 WBC 10.49 H 12.34 H (4.50-10.00) X 10*3/uL RBC 3.58 L 3.90 L (4.40-5.60) X 10*6/uL Hgb 10.4 L 11.4 L (13.0-17.0) g/dL Hct 33.3 L 35.4 L (39.6-50.0) % MCHC 31.2 L (32.0-37.0) g/dL RDW 16.6 H 16.7 H (11.5-14.5) % Plt Count 96 L 112 L (140-440) X 10*3/uL Plt Count Comment DECREASED A Immature Gran # 0.08 H 0.18 H (0.00-0.04) X 10*3/uL Neutrophils # 8.65 H (1.80-7.70) X 10*3/uL Eosinophils # 0.36 H (0.04-0.35) X 10*3/uL Sodium 129 L (135-145) mmol/L Carbon Dioxide 18.1 L (20.0-27.5) mmol/L Glucose 145 H (70-110) mg/dL Calcium 8.3 L (8.7-10.3) mg/dL 07/15/22 Range/Units 05:20 WBC (4.50-10.00) X 10*3/uL RBC (4.40-5.60) X 10*6/uL Hgb (13.0-17.0) g/dL Hct (39.6-50.0) % MCHC (32.0-37.0) g/dL RDW (11.5-14.5) % Plt Count (140-440) X 10*3/uL Plt Count Comment Immature Gran # (0.00-0.04) X 10*3/uL Neutrophils # (1.80-7.70) X 10*3/uL Eosinophils # (0.04-0.35) X 10*3/uL Sodium 132 L (135-145) mmol/L Carbon Dioxide (20.0-27.5) mmol/L Glucose (70-110) mg/dL Calcium (8.7-10.3) mg/dL Microbiology - Last 24 Hours (Table) 07/09/22 13:30 Blood Culture - Preliminary Blood No Growth after 120 hours Assessment and Plan (1) Pneumonia Current Visit: Yes Status: Acute Code(s): J18.9 - PNEUMONIA, UNSPECIFIED ORGANISM SNOMED Code(s): 533987619 Plan: 1patient presented to hospital with increasing shortness of breath which is likely multifactorial in this patient who do have evidence of interstitial infiltrate but no focal consolidation question of possible atypical pneumonia with a recent diagnosis of pneumocystis at [facility] could be likely etiology versus gram-negative pneumonia. 2 sputum for gram stain and culture could not be collected during this admission 3 records from [facility] were reviewed and BAL is positive for pneumocystis. 4patient has shown clinical improvement the patient currently being treated with the Bactrim IV that we'll be switched to by mouth Bactrim DS on discharge for another 2 weeks with close outpatient follow-up Time with Patient: Less than 30
[2022-07-16] MEDS: SUCRALFATE 1 GM TAB PO SCH ×4 (01:03→18:22)
[2022-07-16] MEDS: WATER IVPB SCH ×4 (01:03→08:27)
[2022-07-16] MEDS: SULFAMETHOX TMP IVPB SCH ×4 (01:03→08:27)
[2022-07-16] MEDS: DEXTROSE 5% IVPB SCH ×4 (01:03→08:27)
--- NOTE | 2022-07-16 06:51 | XR ---
EXAMINATION TYPE: XR chest 2V DATE OF EXAM: 07/16/2022 6:35 AM COMPARISON: Chest radiographs from 07/10/2022. TECHNIQUE: XR chest 2V Frontal and lateral views of the chest. CLINICAL INDICATION:Male, 71 years old with history of Pneumonia follow-up; FINDINGS: Lungs/Pleura: No pneumothorax or pleural effusion. Left basilar patchy airspace opacities are redemon strated. Similar diffuse interstitial prominence. Hyperinflation compatible with known COPD. Pulmonary vascularity: Unremarkable. Heart/mediastinum: Cardiomediastinal silhouette is unremarkable. Musculoskeletal: No acute osseous pathology. Other findings: None Lines/Tubes: Left chest wall Mediport catheter with tip at the superior cavoatrial junction. IMPRESSION: Similar COPD changes with diffuse interstitial pattern suggestive of interstitial pneumonitis with crawford perimposed left lower lobe infiltrate.
[2022-07-16] MEDS: LEVOTHYROXINE 25 MCG TAB PO SCH (06:58)
[2022-07-16] MEDS: PANTOPRAZOLE 40 MG TABLET PO SCH (06:59)
[2022-07-16] MEDS: MIDODRINE 5 MG TAB PO SCH ×3 (06:59→18:22)
[2022-07-16] MEDS: polyethylene glycoL 3350 17 GM POWD.PACK PO SCH (08:26)
[2022-07-16] MEDS: SODIUM BICARBONATE TAB 650 MG TAB PO SCH ×3 (08:26→21:42)
[2022-07-16] MEDS: SERTRALINE 100 MG TAB PO SCH (08:26)
[2022-07-16] MEDS: ENOXAPARIN 30 MG/0.3 ML SYRINGE SQ SCH (08:27)
[2022-07-16] MEDS: ARIPiprazole 15 MG TAB PO SCH (08:27)
[2022-07-16] MEDS: METOPROLOL TARTRATE 12.5 MG TAB PO SCH ×2 (08:27→21:42)
[2022-07-16] MEDS: IPRATROPIUM-ALBUTEROL 3 ML NEB INHALATION SCH ×4 (08:49→19:00)
[2022-07-16] MEDS: SYMBICORT 160-4.5 MCG INHALER INHALATION SCH ×2 (08:49→19:00)
[2022-07-16 09:17] LABS: African American GFR (CKD) 98.5 (60.0-200.0); Albumin 3.2 g/dL (3.8-4.9); Albumin/Globulin Ratio 1.19 (1.60-3.17); Anion Gap 10.3 mmol/L (10.00-18.00); BUN/Creat Ratio 11.33 Ratio (12.00-20.00); Blood Urea Nitrogen 10.2 mg/dL (9.0-27.0); C Reactive Protein 1.4 mg/dL (0.00-0.80); Calcium 9.1 mg/dL (8.7-10.3); Carbon Dioxide 21.7 mmol/L (20.0-27.5); Globulin 2.7 g/dL (1.6-3.3); Potassium 4.8 mmol/L (3.5-5.5); Total Bilirubin 0.2 mg/dL (0.30-1.20); Total Protein 5.9 g/dL (6.2-8.2)
[2022-07-16 10:36] LABS: Basophils # (A) 0.07 X 10*3/uL (0.00-0.10); Basophils % (A) 0.6 %; Eosinophils % (A) 2.4 %; HCT 34.4 % (39.6-50.0); HGB 11.1 g/dL (13.0-17.0); Immature Grans, Automated 1.1 %; Lymphocytes # (A) 2.57 X 10*3/uL (0.90-5.00); Lymphocytes % (A) 20.8 %; MCH 28.8 pg (27.0-32.0); MCHC 32.3 g/dL (32.0-37.0); MCV 89.4 fL (80.0-97.0); Mean Platelet Volume 11.4 fL (9.5-12.2); Monocytes # (A) 0.73 X 10*3/uL (0.20-1.00); Monocytes % (A) 5.9 %; NRBC Per 100 WBC 0 /100 WBCS (0.0-0.0); Neutrophils # (A) 8.56 X 10*3/uL (1.80-7.70); Neutrophils % (A) 69.2 %; Platelet Count 122 X 10*3/uL (140-440); RBC 3.85 X 10*6/uL (4.40-5.60); RDW 16.8 % (11.5-14.5); WBC 12.36 X 10*3/uL (4.50-10.00)
[2022-07-16] MEDS: SULFAMETHOX-TMP 200-40MG/5ML 20 ML CUP PO SCH ×2 (12:07→18:21)
--- NOTE | 2022-07-16 12:28 | P.PN ---
Subjective This is a pleasant 71 years old male with multiple medical problems including but not limited to his pancreatic mass and cancer with probable metastasis to the liver, Patient was admitted with respiratory symptoms and hypoxia injury to bacterial infection either gram-negative bacilli versus pneumocystis Carrie discovered at [facility] and patient been followed by pulmonary and ID team and currently covered with cefepime and Bactrim Patient states that his dyspnea is better and currently he is on 2 L oxygen via nasal cannula, patient was not on home oxygen. He eats well with no diarrhea He is saturating 94% on 2 L, WBC 13.7, hemoglobin 10.4 Patient may benefit from ECF upon discharge, patient informed and he agrees. 07/14/2012 He still breathing quietly while he is resting in bed He is saturating 99% on room air No labs from today He remains on Bactrim and cefepime Check labs in the morning Patient will benefit from ECF for rehab 07/15/2022 Patient is clinically stable and well, currently he's not dyspneic and he is on Coroomn air He was cleared for discharge by pulmonary service Also cefepime was discontinued by ID team and kept on Bactrim He has mild leukocytosis which is a stable, rest of labs including normal hemoglobin and platelet count are stable. Patient is medically stable for discharge pending placement, require prior authorization. 07/16/2022 Patient clinically doing well, his breathing is stable. Patient was cleared for discharge by pulmonary service His IV Bactrim switched to oral dose and we are going to monitor him for another 24 hours Possible discharge tomorrow to subacute rehab. Patient and are aware of his appointment with ID team on 07/[address] Davison and 08/14 and they stated they will follow up with them. Patient has no PCP but follow-up with his oncologist I spoke to the Mr. Cardenas and he said that he'll make sure that he will follow-up with his oncologist within 2 weeks Objective - Vital Signs Vital signs: Vital Signs Temp 97.7 F 07/16/22 06:55 Pulse 92 07/16/22 11:28 Resp 18 07/16/22 10:06 BP 118/67 07/16/22 06:55 Pulse Ox 92 L 07/16/22 06:55 FiO2 21 07/15/22 20:18 Intake & Output 07/15/22 07/16/22 07/16/22 18:59 06:59 18:59 Output Total 800 1500 Balance -800 -1500 Weight 51.71 kg Output: Urine 800 1500 Other: Voiding Method External Catheter External Catheter External Catheter - Exam GENERAL: The patient is alert and oriented x3, not in any acute distress. Well developed, well nourished. HEENT: Pupils are round and equally reacting to light. EOMI. No scleral icterus. No conjunctival pallor. Normocephalic, atraumatic. No pharyngeal erythema. No thyromegaly. CARDIOVASCULAR: S1 and S2 present. No murmurs, rubs, or gallops. PULMONARY: Chest is clear to auscultation, no wheezing or crackles. ABDOMEN: Soft, nontender, nondistended, normoactive bowel sounds. No palpable organomegaly. MUSCULOSKELETAL: No joint swelling or deformity. EXTREMITIES: No cyanosis, clubbing, or pedal edema. NEUROLOGICAL: Gross neurological examination did not reveal any focal deficits. SKIN: No rashes. no petechiae. - Labs CBC & Chem 7: 07/16/22 05:34 07/16/22 05:34 Labs: Abnormal Lab Results - Last 24 Hours (Table) 07/16/22 07/16/22 07/16/22 Range/Units 05:34 05:34 05:34 WBC 12.36 H (4.50-10.00) X 10*3/uL RBC 3.85 L (4.40-5.60) X 10*6/uL Hgb 11.1 L (13.0-17.0) g/dL Hct 34.4 L (39.6-50.0) % RDW 16.8 H (11.5-14.5) % Plt Count 122 L (140-440) X 10*3/uL Immature Gran # 0.13 H (0.00-0.04) X 10*3/uL Neutrophils # 8.56 H (1.80-7.70) X 10*3/uL Sodium 130 L (135-145) mmol/L BUN/Creatinine Ratio 11.33 L (12.00-20.00) Ratio Total Bilirubin 0.20 L (0.30-1.20) mg/dL Alkaline Phosphatase 159 H (41-126) U/L C-Reactive Protein 1.40 H (0.00-0.80) mg/dL Total Protein 5.9 L (6.2-8.2) g/dL Albumin 3.2 L (3.8-4.9) g/dL Albumin/Globulin Ratio 1.19 L (1.60-3.17) g/dL Procalcitonin 0.28 H (0.02-0.09) ng/mL Microbiology - Last 24 Hours (Table) 07/09/22 13:30 Blood Culture - Final Blood No Growth after 144 hours Assessment and Plan Assessment: Bacterial pneumonia with gram-negative bacilli versus pneumocystis infection Pancreatic cancer with possible metastasis to the liver Left common carotid artery occlusion, possible Leukocytosis Plan: Continue with Bactrim Pulmonary and ID team on the casewho cleared the patient for discharge Labs and medication were reviewed.. Continue same treatment. Continue with symptomatic treatment. Resume home medication. Monitor labs and vitals. DVT and GI prophylaxis. Further recommendations as per clinical course of the patient DVT prophylaxis: Subcutaneous heparin GI Prophylaxis: Ppi PT/OT: subacute rehab, medically stable pending insurance authorization
--- NOTE | 2022-07-16 12:55 | P.PN ---
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 He was found to be hypoxic. There is currently at [facility] , and our understanding is that the patient was send her after he was hospitalized at [facility] in [place] and he was given systemic chemotherapy for metastatic pancreas cancer. During the same hospitalization, the patient underwent a bronchoscopy and bronchoalveolar lavage that was done was positive for pneumocystis Jev. . Diagnostic circumstances are not known. I believe this was a bronchoscopy and bronchial lavage and I'm not sure the patient was to Bactrim accordingly. jail medication list, there is no antimicrobial treatment directed towards pneumocystis infection. The patient has no previous history of DVTs or pulmonary embolism. Nausea of any aspiration. No nausea or vomiting or abdominal pain. CAT scan of the chest was done in the ED and it showed moderate degree of emphysematous changes bilaterally and peripheral bullae and bleb formation. There was increased ground glass opacity and interlobular septal thickening in the bilateral lungs reveal distant apparently suggesting of an underlying pneumonia/infection. No evidence of any pleural effusion. No mediastinal lymphadenopathy. There was a mass in the tail of the pancreas. This was quite worrisome for pancreatic cancer and the patient has also solid lesion in the liver suggestive of metastatic disease. For now, the patient is on 5 L O2 nasal cannula. The wound was closed of 15.2. Hemoglobin is 12.6. D-dimer is at 1.9 with a normal cognition profile. Electrolytes are normal. Influenza a and B were negative. Covid 19 testing by PCR was negative. RSV was negative. ProBNP level was 1590. Troponins are negative. The patient is seen today 07/10/2022 in follow-up on the regular medical floor. He is currently resting comfortably in bed. He is awake and alert. He is maintaining O2 saturations in the 90s on 2 L/m per nasal cannula. White count 13.7. Hemoglobin 10.9. Sodium 139. Potassium 3.4. BUN 13. Creatinine 0.6. Glucose 123. He is continued on IV Bactrim, cefepime and azithromycin. Further bronchial wash cultures from [facility] are pending. 07/11/2022, seeing the patient for a follow-up clinically the same. No significant Changes. No significant shortness of breath. Remains on the same antibiotic coverage.HIV screen was negative. No nausea. No vomiting. No abdominal pain. No fever or chills. Infectious disease is still looking into this possibility of pneumocystis infection and this is based on the bronchial lavage that was done on 06/28/2022. 07/12/2022, the patient remains on Bactrim. Doing well. No new complaints. Appetite is good. Drinking ensure. No chest pain. No cough or sputum production. No fever. The patient remains on 2 L of oxygen by nasal cannula with a pulse ox of 94%. The patient otherwise has no other specific complaints. Infectious diseases on the case. HIV was negative On 07/13/2022, the patient is resting comfortably in bed on room air oxygen. Remains on Bactrim. No new complaints. Tolerating his diet. No nausea vomiting or abdominal pain. No chest pain. No altered mentation. There was another 10.4 with a hemoglobin of 10.6. Sodium is at 132. Potassium levels at 5.1. On 07/14/2022, clinically stable on room air oxygen and the patient continues to take his antibiotics with Bactrim. No new complaints. W is currently at 10.4 hemoglobin 10.4 platelet count is 96. Sodium is 129, BUN is at 10 with a creatinine of 0.8. There is a drop in the platelet count which could be medication induced. The patient is seen today July 15, 2022 in follow-up on the regular medical floor. He is currently awake and alert in no acute distress. Resting quite comfortably in bed. Maintaining O2 saturations in the 90s on room air. He is continued on IV Bactrim. Blood cultures revealed no growth. White count 12.3. Hemoglobin 11.4. Platelets 112,000. Sodium 132. Potassium 4.9. BUN 11. Creatinine 0.8. He remains on DuoNeb inhalations, Symbicort. Reevaluated today on 07/16/2022, patient seems to be doing well, remains on Bactrim for his PCP pneumonia. Patient does not seem to be in any distress. He is on room air, O2 saturation is 92-96%. WBC count is 4.36 hemoglobin is 11.1 electrolytes are normal renal profile is normal. I believe the patient could be considered for discharge home on Bactrim double strength by mouth twice a day for 2 weeks/as advised by infectious disease on the case Objective - Vital Signs Vital signs: Vital Signs Temp 97.7 F 07/16/22 06:55 Pulse 92 07/16/22 11:28 Resp 18 07/16/22 10:06 BP 118/67 07/16/22 06:55 Pulse Ox 92 L 07/16/22 06:55 FiO2 21 07/15/22 20:18 Intake & Output 07/15/22 07/16/22 07/16/22 18:59 06:59 18:59 Output Total 800 1500 Balance -800 -1500 Weight 51.71 kg Output: Urine 800 1500 Other: Voiding Method External Catheter External Catheter External Catheter - Exam GENERAL EXAM: Alert, frail, pleasant 71-year-old male patient, on room air, not in distress. Head: Atraumatic, normocephalic EENT: PERRLA, EOMI, anicteric, no masses no JVD no stridor CHEST: No chest wall deformity. LUNGS: minimal crackles at the bases. CVS: S1 and S2 normal with no audible murmur, regular rhythm. ABDOMEN: soft nontender no megaly no rebound no guarding SKIN: No rashes CENTRAL NERVOUS SYSTEM: alert and oriented 3 no focal deficit EXTREMITIES: no clubbing edema or cyanosis - Labs CBC & Chem 7: 07/16/22 05:34 07/16/22 05:34 Labs: Abnormal Lab Results - Last 24 Hours (Table) 07/16/22 07/16/22 07/16/22 Range/Units 05:34 05:34 05:34 WBC 12.36 H (4.50-10.00) X 10*3/uL RBC 3.85 L (4.40-5.60) X 10*6/uL Hgb 11.1 L (13.0-17.0) g/dL Hct 34.4 L (39.6-50.0) % RDW 16.8 H (11.5-14.5) % Plt Count 122 L (140-440) X 10*3/uL Immature Gran # 0.13 H (0.00-0.04) X 10*3/uL Neutrophils # 8.56 H (1.80-7.70) X 10*3/uL Sodium 130 L (135-145) mmol/L BUN/Creatinine Ratio 11.33 L (12.00-20.00) Ratio Total Bilirubin 0.20 L (0.30-1.20) mg/dL Alkaline Phosphatase 159 H (41-126) U/L C-Reactive Protein 1.40 H (0.00-0.80) mg/dL Total Protein 5.9 L (6.2-8.2) g/dL Albumin 3.2 L (3.8-4.9) g/dL Albumin/Globulin Ratio 1.19 L (1.60-3.17) g/dL Procalcitonin 0.28 H (0.02-0.09) ng/mL Microbiology - Last 24 Hours (Table) 07/09/22 13:30 Blood Culture - Final Blood No Growth after 144 hours Assessment and Plan Assessment: impression: Acute hypoxic respiratory failure secondary to PCP pneumonia underlying COPD, presently inactive history of pancreatic cancer with metastasis hypothyroidism dyslipidemia history of depression recommendation: Transition patient to oral Bactrim twice a day for 2 weeks will clear the patient to be discharged home with clear by other consultants. May follow-up on outpatient basis if needed. Time with Patient: Less than 30
--- NOTE | 2022-07-16 17:13 | P.PN ---
Subjective Progress Note Date: 07/16/22 Principal diagnosis: pneumonia Patient is a 71-year-old male with a past medical history significant for metastatic pancreatic cancer on chemotherapy and recent diagnosis of pneumocystis pneumonia in the outside hospital presenting snf with increasing shortness of breath patient did have hypoxic but afebrile elevated white count and CT angiogram shows interstitial infiltrate. Patient recently did have a bronchoscopy done at [facility] and was positive for pneumocystis On today's evaluation that is 07/16/2022 the patient continues to be afebrile patient is breathing comfortably on room air, the patient denies chest pain, the patient cough is decreased intensity not bringing up any sputum, the patient denies having any nausea no vomiting no abdominal pain or diarrhea Objective - Vital Signs Vital signs: Vital Signs Temp 97.7 F 07/16/22 06:55 Pulse 92 07/16/22 11:28 Resp 18 07/16/22 10:06 BP 118/67 07/16/22 06:55 Pulse Ox 92 L 07/16/22 06:55 FiO2 21 07/15/22 20:18 Intake & Output 07/15/22 07/16/22 07/16/22 18:59 06:59 18:59 Output Total 800 1500 Balance -800 -1500 Weight 51.71 kg Output: Urine 800 1500 Other: Voiding Method External Catheter External Catheter External Catheter - Exam GENERAL DESCRIPTION: Elderly male lying in bed, no distress. No tachypnea or accessory muscle of respiration use. LUNGS: Unlabored breathing. Decreased breath sound at the base HEART: S1, S2, regular rate and rhythm. No loud murmur ABDOMEN: Soft, no tenderness EXTREMITIES: No edema of feet. - Labs CBC & Chem 7: 07/16/22 05:34 07/16/22 05:34 Labs: Abnormal Lab Results - Last 24 Hours (Table) 07/16/22 07/16/22 07/16/22 Range/Units 05:34 05:34 05:34 WBC 12.36 H (4.50-10.00) X 10*3/uL RBC 3.85 L (4.40-5.60) X 10*6/uL Hgb 11.1 L (13.0-17.0) g/dL Hct 34.4 L (39.6-50.0) % RDW 16.8 H (11.5-14.5) % Plt Count 122 L (140-440) X 10*3/uL Immature Gran # 0.13 H (0.00-0.04) X 10*3/uL Neutrophils # 8.56 H (1.80-7.70) X 10*3/uL Sodium 130 L (135-145) mmol/L BUN/Creatinine Ratio 11.33 L (12.00-20.00) Ratio Total Bilirubin 0.20 L (0.30-1.20) mg/dL Alkaline Phosphatase 159 H (41-126) U/L C-Reactive Protein 1.40 H (0.00-0.80) mg/dL Total Protein 5.9 L (6.2-8.2) g/dL Albumin 3.2 L (3.8-4.9) g/dL Albumin/Globulin Ratio 1.19 L (1.60-3.17) g/dL Procalcitonin 0.28 H (0.02-0.09) ng/mL Microbiology - Last 24 Hours (Table) 07/09/22 13:30 Blood Culture - Final Blood No Growth after 144 hours Assessment and Plan (1) Pneumonia Current Visit: Yes Status: Acute Code(s): J18.9 - PNEUMONIA, UNSPECIFIED ORGANISM SNOMED Code(s): 442732376 Plan: 1patient presented to hospital with increasing shortness of breath which is likely multifactorial in this patient who do have evidence of interstitial infiltrate but no focal consolidation question of possible atypical pneumonia with a recent diagnosis of pneumocystis at [facility] could be likely etiology versus gram-negative pneumonia. 2 sputum for gram stain and culture could not be collected during this admission 3 records from [facility] were reviewed and BAL is positive for pneumocystis. 4patient has shown clinical improvement, we will switch him to oral Bactrim DS with the patient tolerates it plan is to finish therapy with Bactrim DS 2 tablets 3 times a day for 2 weeks and close outpatient follow-up Time with Patient: Less than 30
[2022-07-16] MEDS: ATORVASTATIN 20 MG TAB PO SCH (21:42)
[2022-07-17] MEDS: SULFAMETHOX-TMP 200-40MG/5ML 20 ML CUP PO SCH ×3 (01:22→12:47)
[2022-07-17] MEDS: SUCRALFATE 1 GM TAB PO SCH ×3 (01:22→12:46)
[2022-07-17] MEDS: LEVOTHYROXINE 25 MCG TAB PO SCH (06:29)
[2022-07-17] MEDS: MIDODRINE 5 MG TAB PO SCH ×2 (06:29→12:46)
[2022-07-17] MEDS: PANTOPRAZOLE 40 MG TABLET PO SCH (06:29)
[2022-07-17] MEDS: IPRATROPIUM-ALBUTEROL 3 ML NEB INHALATION SCH ×3 (08:21→15:29)
[2022-07-17] MEDS: SYMBICORT 160-4.5 MCG INHALER INHALATION SCH (08:21)
[2022-07-17] MEDS: METOPROLOL TARTRATE 12.5 MG TAB PO SCH (10:26)
[2022-07-17] MEDS: polyethylene glycoL 3350 17 GM POWD.PACK PO SCH (10:26)
[2022-07-17] MEDS: SERTRALINE 100 MG TAB PO SCH (10:27)
[2022-07-17] MEDS: SODIUM BICARBONATE TAB 650 MG TAB PO SCH (10:27)
[2022-07-17] MEDS: ENOXAPARIN 30 MG/0.3 ML SYRINGE SQ SCH (10:27)
--- NOTE | 2022-07-17 10:28 | P.DS ---
Providers Date of admission: 07/09/22 13:57 Attending physician: Bhavik Tinoco Consults: 07/09/22 13:12 Consult Physician Routine Consulting Provider: Manpreet Davison Consult Reason/Comments: Pneumonia, hypoxia Do you want consulting provider notified?: Yes 07/09/22 13:23 Consult Physician Routine Consulting Provider: Jim Bautista Consult Reason/Comments: HAP? Do you want consulting provider notified?: Yes Primary care physician: Physician Nonstaff Hospital Course: Diagnoses: Bacterial pneumonia with gram-negative bacilli (finish his antibiotic therapy ) versus pneumocystis infection (continued on Bactrim ) Pancreatic cancer with possible metastasis to the liver, We'll follow up as an outpatient Left common carotid artery occlusion recommended follow-up as an outpatient Leukocytosis Hospital course: This is a pleasant 71 years old male with multiple medical problems including but not limited to his pancreatic mass and cancer with probable metastasis to the liver, Patient was admitted with respiratory symptoms and hypoxia injury to bacterial infection either gram-negative bacilli versus pneumocystis Carrie discovered at [facility] and patient been followed by pulmonary and ID team an given this hospitalization he was covered with cefepime and Bactrim Patient states that his dyspnea is better and currently he is onroom air, patient was not on home oxygen. He eats well with no diarrhea. Eventually patient feels better as and breathing back to baseline, cefepime was discontinued. IV Bactrim switched to oral toes. On the day of discharge she denies any other symptoms, no chest pain or dyspnea, no neurological, GI or UTI symptoms. No fever. Patient was cleared for discharge by all consultants including pulmonary, infectious disease Also vascular surgery evaluated patient for incidental finding of the left common carotid artery occlusion/stenoses and they recommended outpatient follow- up Problems and management plan were discussed with the patient and he verbalized understanding and acceptance. Also I discussed with his Mr. Cardenas on the follow-up recommendation including ID, pulmonary and hematology oncologist and they verbalized understanding and acceptance with the plan Patient was found stable and can be discharged SA are in guarded prognosis however he needs follow-up as an outpatient. Patient was instructed to follow up with PCP within one week and patient agrees Patient was instructed to follow up with Dr. Bautista on 07/[address] Davison 08/14 and patient agrees Patient and was instructed to follow-up with their oncologist in 2 weeks, states that he will make arrangements and they have already the contact information further appointments Patient instructed to follow up with vascular surgery DrSandra Bailey in 2 weeks Patient will go to subacute rehab for his weakness Physical exam -Gen: patient is a AAOx3, no distress, generally weak CVS: S1-S2, RRR, no murmur Lungs: B/L CTA, no wheezing Abdomen: soft, no distention, no tenderness, positive bowel sounds Extremity: no leg edema or induration Time spent more than 35 minutes Patient Condition at Discharge: Fair Plan - Discharge Summary New Discharge Prescriptions: New Sulfamethox-Tmp 800-160Mg [Bactrim DS 800-160 mg] 2 tab PO Q8HR #84 tab Continue Tiotropium 2.5 Mcg/Puff [Spiriva Respimat 2.5 Mcg] 2 puff INHALATION RT-DAILY Sertraline [Zoloft] 100 mg PO DAILY Sucralfate [Carafate] 1 gm PO Q6H Sodium Chloride Tab 1 gm PO TID Sodium Bicarbonate Tab 650 mg PO TID Omeprazole 20 mg PO DAILY dronabinoL [Marinol] 2.5 mg PO BID Ipratropium-Albuterol Nebulize [Duoneb 0.5 mg-3 mg/3 ml Soln] 3 ml INHALATION RT-Q4H PRN PRN Reason: Shortness Of Breath Budesonide/Formoterol Fumarate [Symbicort 160-4.5 Mcg Inhaler] 2 puff INHALATION RT-BID Atorvastatin [Lipitor] 20 mg PO HS Levothyroxine Sodium [Synthroid] 25 mcg PO DAILY Sennosides/Docusate Sodium [Senna Plus 8.6-50 mg Softgel] 1 cap PO Q12H PRN PRN Reason: Constipation Prochlorperazine [Compazine] 10 mg PO Q6H PRN PRN Reason: Nausea Midodrine HCl [ProAmatine] 10 mg PO TID Metoprolol Tartrate [Lopressor] 12.5 mg PO BID Diphenoxylate HCl/Atropine [Lomotil 2.5-0.025 mg Tablet] 1 tab PO Q6H PRN PRN Reason: Diarrhea ARIPiprazole [Abilify] 15 mg PO DAILY polyethylene glycoL 3350 [Miralax] 17 gm PO DAILY #0 Discontinued HYDROcodone/APAP 10-325MG [[place] 10-325] 1 tab PO Q6HR PRN PRN Reason: Pain Discharge Medication List ARIPiprazole [Abilify] 15 mg PO DAILY 07/09/22 [History] Atorvastatin [Lipitor] 20 mg PO HS 07/09/22 [History] Budesonide/Formoterol Fumarate [Symbicort 160-4.5 Mcg Inhaler] 2 puff INHALATION RT-BID 07/09/22 [History] Diphenoxylate HCl/Atropine [Lomotil 2.5-0.025 mg Tablet] 1 tab PO Q6H PRN 07/09/22 [History] Ipratropium-Albuterol Nebulize [Duoneb 0.5 mg-3 mg/3 ml Soln] 3 ml INHALATION RT-Q4H PRN 07/09/22 [History] Levothyroxine Sodium [Synthroid] 25 mcg PO DAILY 07/09/22 [History] Metoprolol Tartrate [Lopressor] 12.5 mg PO BID 07/09/22 [History] Midodrine HCl [ProAmatine] 10 mg PO TID 07/09/22 [History] Omeprazole 20 mg PO DAILY 07/09/22 [History] Prochlorperazine [Compazine] 10 mg PO Q6H PRN 07/09/22 [History] Sennosides/Docusate Sodium [Senna Plus 8.6-50 mg Softgel] 1 cap PO Q12H PRN 07/09/22 [History] Sertraline [Zoloft] 100 mg PO DAILY 07/09/22 [History] Sodium Bicarbonate Tab 650 mg PO TID 07/09/22 [History] Sodium Chloride Tab 1 gm PO TID 07/09/22 [History] Sucralfate [Carafate] 1 gm PO Q6H 07/09/22 [History] Tiotropium 2.5 Mcg/Puff [Spiriva Respimat 2.5 Mcg] 2 puff INHALATION RT-DAILY 07/09/22 [History] dronabinoL [Marinol] 2.5 mg PO BID 07/09/22 [History] Sulfamethox-Tmp 800-160Mg [Bactrim DS 800-160 mg] 2 tab PO Q8HR #84 tab 07/16/22 [Rx] polyethylene glycoL 3350 [Miralax] 17 gm PO DAILY #0 07/16/22 [Rx] Follow up Appointment(s)/Referral(s): None,Stated [REFERRING] - 1-2 days Jim Bautista MD [STAFF PHYSICIAN] - 07/30/22 2:45 pm Manpreet Davison MD [STAFF PHYSICIAN] - 08/14/22 1:00 pm Ambulatory/Diagnostic Orders: Basic Metabolic Panel [LAB.AMB] Location: None Selected Activity/Diet/Wound Care/Special Instructions: Heart healthy diet Activity as tolerated Discharge Disposition: TRANSFER TO SNF/ECF
[2022-07-17] MEDS: ARIPiprazole 15 MG TAB PO SCH (10:43)
--- NOTE | 2022-07-17 13:20 | US ---
EXAMINATION TYPE: US carotid duplex BILAT DATE OF EXAM: 07/17/2022 COMPARISON: NONE CLINICAL HISTORY: evaluate for carotid stenosis. TECHNIQUE: Carotid duplex ultrasound examination. Indirect Doppler criteria was utilized. FINDINGS: EXAM MEASUREMENTS: RIGHT: Peak Systolic Velocity (PSV) cm/sec ----- Right CCA: 61.1 ----- Right ICA: 103 ----- Right ECA: 99.3 ICA/CCA ratio: 1.7 RIGHT: End Diastole cm/sec ----- Right CCA: 42.9 ----- Right ICA: 23.0 ----- Right ECA: 10.3 LEFT: Peak Systolic Velocity (PSV) cm/sec ----- Left CCA: n/a ----- Left ICA: n/a ----- Left ECA: n/a ICA/CCA ratio: n/a LEFT: End Diastole cm/sec ----- Left CCA: n/a ----- Left ICA: n/a ----- Left ECA: n/a VERTEBRALS (direction of flow): Right Vertebral: Antegrade Left Vertebral: n/a Rhythm: Normal SHOE DRESSER NOTES: Mild plaque right bifurcation. no evidence of increased velocities on the right. u nable to clearly visualize left carotid system. recommend other imaging modality IMPRESSION: Poor visualization of the left carotid system. Conclusion difficult to exclude. CTA of the neck is re commended. Criteria for Assigning % of Stenosis / Diameter reduction (Estimation based on the indirect measurements of the internal carotid artery velocities (ICA PSV). 1. Normal (no stenosis)=ICA PSV < 125 cm/s: ratio < 2.0: ICA EDV<40 cm/s. 2. Less than 50% stenosis=ICA PSV < 125 cm/s: ratio < 2.0: ICA EDV<40 cm/s. 3. 50 to 69% stenosis=ICA PSV of 125 to 230 cm/s: ration 2.0 ? 4.0: ICA EDV 40-100 cm/s. 4. Greater than 70% stenosis to near occlusion= ICA PSV > 230 cm/s: ratio > 4.0: ICA EDV > 100 cm/s. 5. Near occlusion= ICA PSV velocities may be low or undetectable: variable ratio and ICA EDV. 6. Total occlusion=unable to detect flow.
--- NOTE | 2022-07-17 13:39 | P.GSCN ---
History of Present Illness Consult date: 07/17/22 Reason for Consult: ICA narrowing Requesting physician: Dominick E Sheet History of present illness: This is a pleasant 71-year-old male who has been hospitalized since 07/09/2022 for shortness of breath, hypoxia related to pneumonia. Patient was recently diagnosed with pancreatic cancer metastatic to the liver being treated with systemic chemotherapy. He was recently admitted at [facility] for pneumocystis, was released and then presented back to [facility] with increased shortness of breath. During this hospitalization as part of his workup he had a CT chest angiogram that reported a suspected small caliber occluded left common carotid artery And vascular surgery was consulted for th is. patient has order for discharge are placed pending our evaluation. Patient denies any focal deficits, he has not had any strokelike symptoms. No history in the past of stroke or TIA that he is aware of. Review of Systems A 14 point review systems was completed all pertinent positives and negatives as stated in the HPI. 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, anemia History of Any Multi-Drug Resistant Organisms: None Reported Additional Past Surgical History / Comment(s): brain surgery Past Anesthesia/Blood Transfusion Reactions: No Reported Reaction Past Psychological History: Depression Smoking Status: Former smoker Past Alcohol Use History: None Reported Past Drug Use History: None Reported Medications and Allergies Home Medications Medication Instructions Recorded Confirmed Type ARIPiprazole [Abilify] 15 mg PO DAILY 07/09/22 07/09/22 History Atorvastatin [Lipitor] 20 mg PO HS 07/09/22 07/09/22 History Budesonide/Formoterol Fumarate 2 puff INHALATION RT-BID 07/09/22 07/09/22 History [Symbicort 160-4.5 Mcg Inhaler] Diphenoxylate HCl/Atropine 1 tab PO Q6H PRN 07/09/22 07/09/22 History [Lomotil 2.5-0.025 mg Tablet] Ipratropium-Albuterol Nebulize 3 ml INHALATION RT-Q4H PRN 07/09/22 07/09/22 History [Duoneb 0.5 mg-3 mg/3 ml Soln] Levothyroxine Sodium [Synthroid] 25 mcg PO DAILY 07/09/22 07/09/22 History Metoprolol Tartrate [Lopressor] 12.5 mg PO BID 07/09/22 07/09/22 History Midodrine HCl [ProAmatine] 10 mg PO TID 07/09/22 07/09/22 History Omeprazole 20 mg PO DAILY 07/09/22 07/09/22 History Prochlorperazine [Compazine] 10 mg PO Q6H PRN 07/09/22 07/09/22 History Sennosides/Docusate Sodium [Senna 1 cap PO Q12H PRN 07/09/22 07/09/22 History Plus 8.6-50 mg Softgel] Sertraline [Zoloft] 100 mg PO DAILY 07/09/22 07/09/22 History Sodium Bicarbonate Tab 650 mg PO TID 07/09/22 07/09/22 History Sodium Chloride Tab 1 gm PO TID 07/09/22 07/09/22 History Sucralfate [Carafate] 1 gm PO Q6H 07/09/22 07/09/22 History Tiotropium 2.5 Mcg/Puff [Spiriva 2 puff INHALATION RT-DAILY 07/09/22 07/09/22 History Respimat 2.5 Mcg] dronabinoL [Marinol] 2.5 mg PO BID 07/09/22 07/09/22 History Sulfamethox-Tmp 800-160Mg [Bactrim 2 tab PO Q8HR #84 tab 07/16/22 Rx DS 800-160 mg] polyethylene glycoL 3350 [Miralax] 17 gm PO DAILY #0 07/16/22 07/09/22 Rx Allergies Allergy/AdvReac Type Severity Reaction Status Date / Time Penicillins Allergy Unknown Verified 07/09/22 13:12 Surgical - Exam Vital Signs Temp Pulse Resp BP Pulse Ox 97 F L 105 H 28 H 140/71 100 07/09/22 11:08 07/09/22 11:08 07/09/22 11:08 07/09/22 11:08 07/09/22 11:08 General appearance: The patient is alert, oriented, frail, thin, appears in no acute distress. HET: Head is normocephalic and atraumatic. Pupils are equal and reactive. Neck: Supple. Trachea midline. No audible carotid bruit. Heart: Regular. Lungs: Equal expansion, normal respiratory effort. Abdomen: Soft, nontender, nondistended. Extremities: Normal skin color and turgor. No cyanosis, rash, ulceration, clubbing, or edema. Neurological: No focal deficits. Alert and oriented. Results - Labs 07/16/22 05:34 07/16/22 05:34 Assessment and Plan Assessment: 1. 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 Acute hypoxic respiratory failure secondary to P CP pneumonia, resolved 3. History of underlying COPD 4. History of pancreatic cancer with metastasis Plan: 1. Carotid duplex ordered and reviewed with Dr. Dalton. Carotid ultrasound nondiagnostic. 2. Continue with statin daily 3. Patient is cleared from vascular surgery for discharge. He is recommended to follow-up with vascular surgery for further workup of carotid stenosis. Thank you for this consultation. We will sign off at this time. The impression and plan of care has been dictated as directed. I performed a history and examination of this patient, discussed the same with the dictator. I agree with the dictator's note ,documented as a scribe. Any additional findings or plans will be noted.
--- NOTE | 2022-07-17 14:45 | P.PN ---
Subjective Progress Note Date: 07/17/22 71-year-old male patient came into the ED because of worsening shortness of breath. He was found to be hypoxic. There is currently at [facility] , and our understanding is that the patient was send her after he was hospitalized at [facility] in [place] and he was given systemic chemotherapy for metastatic pancreas cancer. During the same hospitalization, the patient underwent a bronchoscopy and bronchoalveolar lavage that was done was positive for pneumocystis Jev. . Diagnostic circumstances are not known. I believe this was a bronchoscopy and bronchial lavage and I'm not sure the patient was to Bactrim accordingly. skilled nursing medication list, there is no antimicrobial treatment directed towards pneumocystis infection. The patient has no previous history of DVTs or pulmonary embolism. Nausea of any aspiration. No nausea or vomiting or abdominal pain. CAT scan of the chest was done in the ED and it showed moderate degree of emphysematous changes bilaterally and peripheral bullae and bleb formation. There was increased ground glass opacity and interlobular septal th ickening in the bilateral lungs reveal distant apparently suggesting of an underlying pneumonia/infection. No evidence of any pleural effusion. No mediastinal lymphadenopathy. There was a mass in the tail of the pancreas. This was quite worrisome for pancreatic cancer and the patient has also solid lesion in the liver suggestive of metastatic disease. For now, the patient is on 5 L O2 nasal cannula. The wound was closed of 15.2. Hemoglobin is 12.6. D-dimer is at 1.9 with a normal cognition profile. Electrolytes are normal. Influenza a and B were negative. Covid 19 testing by PCR was negative. RSV was negative. ProBNP level was 1590. Troponins are negative. The patient is seen today 07/10/2022 in follow-up on the regular medical floor. He is currently resting comfortably in bed. He is awake and alert. He is maintaining O2 saturations in the 90s on 2 L/m per nasal cannula. White count 13.7. Hemoglobin 10.9. Sodium 139. Potassium 3.4. BUN 13. Creatinine 0.6. Glucose 123. He is continued on IV Bactrim, cefepime and azithromycin. Further bronchial wash cultures from [facility] are pending. 07/11/2022, seeing the patient for a follow-up clinically the same. No significant Changes. No significant shortness of breath. Remains on the same antibiotic coverage.HIV screen was negative. No nausea. No vomiting. No abdominal pain. No fever or chills. Infectious disease is still looking into this possibility of pneumocystis infection and this is based on the bronchial lavage that was done on 06/28/2022. 07/12/2022, the patient remains on Bactrim. Doing well. No new complaints. Appetite is good. Drinking ensure. No chest pain. No cough or sputum production. No fever. The patient remains on 2 L of oxygen by nasal cannula with a pulse ox of 94%. The patient otherwise has no other specific complaints. Infectious diseases on the case. HIV was negative On 07/13/2022, the patient is resting comfortably in bed on room air oxygen. Remains on Bactrim. No new complaints. Tolerating his diet. No nausea vomiting or abdominal pain. No chest pain. No altered mentation. There was another 10.4 with a hemoglobin of 10.6. Sodium is at 132. Potassium levels at 5.1. On 07/14/2022, clinically stable on room air oxygen and the patient continues to take his antibiotics with Bactrim. No new complaints. W is currently at 10.4 hemoglobin 10.4 platelet count is 96. Sodium is 129, BUN is at 10 with a creatinine of 0.8. There is a drop in the platelet count which could be medication induced. The patient is seen today July 15, 2022 in follow-up on the regular medical floor. He is currently awake and alert in no acute distress. Resting quite comfortably in bed. Maintaining O2 saturations in the 90s on room air. He is continued on IV Bactrim. Blood cultures revealed no growth. White count 12.3. Hemoglobin 11.4. Platelets 112,000. Sodium 132. Potassium 4.9. BUN 11. Creatinine 0.8. He remains on DuoNeb inhalations, Symbicort. The patient is seen today 07/17/2022 in follow-up on the regular medical floor. He is sitting up in bed. Awake and alert in no acute distress. Maintaining good O2 saturations in the 90s on room air. No worsening shortness of breath, cough or congestion. No fever or chills. blood cultures revealed no growth. No new labs today. He has been transitioned to oral Bactrim. Continued on bronchodilators. Objective - Vital Signs Vital signs: Vital Signs Temp 97.9 F 07/17/22 07:34 Pulse 100 07/17/22 12:58 Resp 17 07/17/22 07:34 BP 118/81 07/17/22 07:34 Pulse Ox 96 07/17/22 07:34 FiO2 21 07/15/22 20:18 Intake & Output 07/16/22 07/17/22 07/17/22 18:59 06:59 18:59 Intake Total 400 Output Total 700 600 Balance -300 -600 Intake: Oral 400 Output: Urine 700 600 Other: Voiding Method External Catheter External Catheter - Exam GENERAL EXAM: Alert, frail, 71-year-old male patient, on room air, comfortable in no apparent distress. HEAD: Normocephalic. EYES: Normal reaction of pupils, equal size. NOSE: Clear with pink turbinates. THROAT: No erythema or exudates. NECK: No masses, no JVD. CHEST: No chest wall deformity. LUNGS: Equal air entry with bilateral scattered rhonchi. CVS: S1 and S2 normal with no audible murmur, regular rhythm. ABDOMEN: No hepatosplenomegaly, normal bowel sounds, no guarding or rigidity. SPINE: No scoliosis or deformity SKIN: No rashes CENTRAL NERVOUS SYSTEM: No focal deficits, tone is normal in all 4 extremities. EXTREMITIES: There is no peripheral edema. No clubbing, no cyanosis. Peripheral pulses are intact. - Labs CBC & Chem 7: 07/16/22 05:34 07/16/22 05:34 Assessment and Plan Assessment: Shortness of breath likely secondary to bilateral pneumonia. The patient underwent a bronchoscopy at [facility] in [place], the patient was found to have a pneumocystis Jivoreci infection. He was probably immunocompromised to systemic chemotherapy and he developed a pneumocystis pneumonia based on the records forwarded to us. Improving and currently on room air. He has been t ransitioned to oral Bactrim. Acute hypoxic respiratory failure, recovered and currently on room air COPD with bilateral emphysematous changes History of pancreatic cancer, metastatic with solid lesion in the liver , Being treated with systemic chemotherapy Hypothyroidism Hyperlipidemia Chronic depression Plan: The patient was seen and evaluated Medications reviewed He has been transitioned to oral Bactrim The plan is for 2 weeks of treatment Stable and on room air Cleared for discharge We will see as needed I have personally seen and examined the patient, performed the documentation and the assessment and plan as written. Number of minutes spent on the visit: 10.
[2022-07-17 15:41] VITALS: BP 125/70; PULSE 81; RESP 16; TEMP 98.3
--- NOTE | 2022-07-18 21:47 | P.PN ---
Subjective Progress Note Date: 07/17/22 Principal diagnosis: pneumonia Patient is a 71-year-old male with a past medical history significant for metastatic pancreatic cancer on chemotherapy and recent diagnosis of pneumocystis pneumonia in the outside hospital presenting assisted with increasing shortness of breath patient did have hypoxic but afebrile elevated white count and CT angiogram shows interstitial infiltrate. Patient recently did have a bronchoscopy done at [facility] and was positive for pneumocystis On today's evaluation that is 07/17/2022 the patient denies any fever or chills, patient is breathing comfortably on room air, the patient denies chest pain, the patient cough has decreased intensity and mostly dry in nature, the patient denies having any nausea no vomiting no abdominal pain or diarrhea Objective - Vital Signs Vital signs: Vital Signs Temp 97.9 F 07/17/22 07:34 Pulse 96 07/17/22 08:34 Resp 17 07/17/22 07:34 BP 118/81 07/17/22 07:34 Pulse Ox 96 07/17/22 07:34 FiO2 21 07/15/22 20:18 Intake & Output 07/16/22 07/17/22 07/17/22 18:59 06:59 18:59 Intake Total 400 Output Total 700 600 Balance -300 -600 Intake: Oral 400 Output: Urine 700 600 Other: Voiding Method External Catheter External Catheter - Exam GENERAL DESCRIPTION: Elderly male lying in bed, no distress. No tachypnea or accessory muscle of respiration use. LUNGS: Unlabored breathing. Decreased breath sound at the base HEART: S1, S2, regular rate and rhythm. No loud murmur ABDOMEN: Soft, no tenderness EXTREMITIES: No edema of feet. - Labs CBC & Chem 7: 07/16/22 05:34 07/16/22 05:34 Assessment and Plan (1) Pneumonia Status: Acute Code(s): J18.9 - PNEUMONIA, UNSPECIFIED ORGANISM SNOMED Code(s): 493381933 Plan: 1patient presented to hospital with increasing shortness of breath which is likely multifactorial in this patient who do have evidence of interstitial infiltrate but no focal consolidation question of possible atypical pneumonia with a recent diagnosis of pneumocystis at [facility] could be likely etiology versus gram-negative pneumonia. 2 sputum for gram stain and culture could not be collected during this adm ission 3 records from [facility] were reviewed and BAL is positive for pneumocystis. 4patient has shown clinical improvement, plan is to finish therapy with Bactrim DS 2 tablets 3 times a day for 2 weeks,has been confirmed with the pharmacist with a weakly environment of his BMP and close outpatient follow-up Time with Patient: Less than 30
== END 2022-07-17 17:04 | DRG 177 ==
LOC: EC 11:07 → 4SSUR 13:57
PROVIDERS: ADMIT Hospitalist; ATTEND Hospitalist
DX: J15.6 Pneumonia due to other Gram-negative bacteria (principal); J96.01 Acute respiratory failure with hypoxia; E44.0 Moderate protein-calorie malnutrition; C78.01 Secondary malignant neoplasm of right lung; D84.821 Immunodeficiency due to drugs; C78.02 Secondary malignant neoplasm of left lung; C25.9 Malignant neoplasm of pancreas, unspecified; C78.7 Secondary malignant neoplasm of liver and intrahepatic bile duct; J84.9 Interstitial pulmonary disease, unspecified; J44.0 Chronic obstructive pulmonary disease with (acute) lower respiratory infection; Z68.1 Body mass index [BMI] 19.9 or less, adult; D63.0 Anemia in neoplastic disease; I65.22 Occlusion and stenosis of left carotid artery; E03.9 Hypothyroidism, unspecified; I10 Essential (primary) hypertension; F32.A Depression, unspecified; L89.152 Pressure ulcer of sacral region, stage 2; J39.8 Other specified diseases of upper respiratory tract; E78.5 Hyperlipidemia, unspecified; Y95 Nosocomial condition; Z20.822 Contact with and (suspected) exposure to COVID-19; Z88.0 Allergy status to penicillin; Z87.891 Personal history of nicotine dependence; Z92.21 Personal history of antineoplastic chemotherapy; Z87.01 Personal history of pneumonia (recurrent); Z79.899 Other long term (current) drug therapy; Z79.51 Long term (current) use of inhaled steroids; Z79.890 Hormone replacement therapy
CPT/HCPCS: 36415; 71046; 71275; 80048; 80053; 81001; 83605; 83735; 83880; 84145; 84484; 85025; 85379; 85610; 85730; 86140; 87040; 87390; 87636; 93005; 93880; 94640; 94760; 96365; 96366; 96367; 99285